=== PATIENT | female | born 1940 | race Asian ===

== ENCOUNTER → 2016-09-11 | Outpatient (CLI) | payer MEDICARE, MEDICAID ==
[2016-09-11 14:03] LABS: ABSOLUTE BASOPHILS # (AUTO) 0.1 10^3/uL (0.0-0.2); ABSOLUTE EOSINOPHILS # (AUTO) 0.3 10^3/uL (0.0-0.6); ABSOLUTE LYMPHOCYTES (AUTO) 1.2 10^3/uL (0.5-4.7); ABSOLUTE MONOCYTES (AUTO) 0.3 10^3/uL (0.1-1.4); ABSOLUTE NEUT (AUTO) 4.3 10^3/uL (1.7-8.2); BASOPHILS % (AUTO) 0.9 % (0-2); EOSINOPHILS % (AUTO) 4.5 % (0-6); HEMATOCRIT 26.5 % (36.0-47.0); HEMOGLOBIN 9.2 g/dL (12.0-15.5); HGB HCT DIFFERENCE 1.1; LYMPHOCYTES % (AUTO) 19.6 % (13-45); MEAN CORPUSCULAR HEMOGLOBIN 30.7 pg (27.0-33.4); MEAN CORPUSCULAR HGB CONC 34.6 g/dL (32.0-36.0); MEAN CORPUSCULAR VOLUME 89 fl (80-97); MONOCYTES % (AUTO) 5.6 % (3-13); RED BLOOD COUNT 2.99 10^6/uL (3.72-5.28); RED CELL DISTRIBUTION WIDTH 15.5 % (11.5-14.0); SEGMENTED NEUTROPHILS % (AUTO) 69.4 % (42-78); WHITE BLOOD COUNT 6.2 10^3/uL (4.0-10.5)
[2016-09-11 14:31] LABS: ANION GAP 10 (5-19); BLOOD UREA NITROGEN 51 mg/dL (7-20); CALCIUM 9.1 mg/dL (8.4-10.2); CARBON DIOXIDE 26 mmol/L (22-30); CHLORIDE 104 mmol/L (98-107); CREATININE RESULT 3.46 mg/dL (0.52-1.25); GLUCOSE 113 mg/dL (75-110); PHOSPHORUS 4.5 mg/dL (2.5-4.5); POTASSIUM 5.5 mmol/L (3.6-5.0); SODIUM 140.3 mmol/L (137-145)
== END ==
LOC: OD 12:31
PROVIDERS: ATTEND Internal Medicine Nephrology
DX: N18.5 Chronic kidney disease, stage 5 (principal); D63.1 Anemia in chronic kidney disease; E83.30 Disorder of phosphorus metabolism, unspecified
CPT/HCPCS: 36415; 80048; 84100; 85025

== ENCOUNTER → 2016-09-16 | Outpatient (CLI) | payer MEDICARE, MEDICAID ==
[2016-09-16 12:16] LABS: HEMATOCRIT 28.5 % (36.0-47.0); HEMOGLOBIN 9.7 g/dL (12.0-15.5); HGB HCT DIFFERENCE 0.6; MEAN CORPUSCULAR HEMOGLOBIN 30.5 pg (27.0-33.4); MEAN CORPUSCULAR HGB CONC 33.9 g/dL (32.0-36.0); MEAN CORPUSCULAR VOLUME 90 fl (80-97); RED BLOOD COUNT 3.17 10^6/uL (3.72-5.28); RED CELL DISTRIBUTION WIDTH 15.7 % (11.5-14.0); WHITE BLOOD COUNT 6.9 10^3/uL (4.0-10.5)
== END ==
LOC: OD 11:24
PROVIDERS: ATTEND Internal Medicine Nephrology
DX: E87.5 Hyperkalemia (principal); D63.1 Anemia in chronic kidney disease
CPT/HCPCS: 36415; 84132; 85027

== ENCOUNTER → 2016-11-07 | Outpatient (CLI) | payer MEDICARE, MEDICAID ==
[2016-11-07 09:00] LABS: ABSOLUTE EOSINOPHILS # (AUTO) 0.2 10^3/uL (0.0-0.6); ABSOLUTE LYMPHOCYTES (AUTO) 1.5 10^3/uL (0.5-4.7); ABSOLUTE MONOCYTES (AUTO) 0.4 10^3/uL (0.1-1.4); ABSOLUTE NEUT (AUTO) 3.9 10^3/uL (1.7-8.2); BASOPHILS % (AUTO) 0.6 % (0-2); EOSINOPHILS % (AUTO) 3.4 % (0-6); HEMATOCRIT 29.2 % (36.0-47.0); HEMOGLOBIN 10.1 g/dL (12.0-15.5); HGB HCT DIFFERENCE 1.1; LYMPHOCYTES % (AUTO) 24.6 % (13-45); MEAN CORPUSCULAR HEMOGLOBIN 30.7 pg (27.0-33.4); MEAN CORPUSCULAR HGB CONC 34.6 g/dL (32.0-36.0); MEAN CORPUSCULAR VOLUME 89 fl (80-97); MONOCYTES % (AUTO) 6.3 % (3-13); RED BLOOD COUNT 3.29 10^6/uL (3.72-5.28); RED CELL DISTRIBUTION WIDTH 15.3 % (11.5-14.0); SEGMENTED NEUTROPHILS % (AUTO) 65.1 % (42-78)
[2016-11-07 09:35] LABS: ANION GAP 11 (5-19); BLOOD UREA NITROGEN 48 mg/dL (7-20); CALCIUM 9.2 mg/dL (8.4-10.2); CARBON DIOXIDE 26 mmol/L (22-30); CHLORIDE 104 mmol/L (98-107); CREATININE RESULT 3.34 mg/dL (0.52-1.25); GLUCOSE 69 mg/dL (75-110); POTASSIUM 4.9 mmol/L (3.6-5.0); SODIUM 141.3 mmol/L (137-145)
== END ==
LOC: OD 08:03
PROVIDERS: ATTEND Internal Medicine Nephrology
DX: N18.5 Chronic kidney disease, stage 5 (principal); D63.1 Anemia in chronic kidney disease
CPT/HCPCS: 36415; 80048; 85025

== ENCOUNTER 2016-12-03 14:44 | Inpatient (IN) | payer MEDICARE, MEDICAID ==
--- NOTE | 2016-12-03 15:54 | ER Document Report ---
ED Medical Screen (RME) - General Stated Complaint: BACK PAIN Notes: Patient is here for evaluation of possible kidney failure. States she vomited this am. Took tylenol last night for chills. Febrile in triage. Patient is diabetic. Denies dysuria. Patient denies pain at this time I have greeted and performed a rapid initial assessment of this patient. A comprehensive ED assessment and evaluation of the patient, analysis of test results and completion of the medical decision making process will be conducted by additional ED providers. TRAVEL OUTSIDE OF THE [place] IN LAST 30 DAYS: No - Related Data Allergies/Adverse Reactions: No Known Allergies Allergy (Verified 12/03/16 15:51) Past Medical History - Past Medical History Cardiac Medical History: Reports: Hx Hypertension Denies: Hx Coronary Artery Disease, Hx Heart Attack Pulmonary Medical History: Reports: Hx Pneumonia Denies: Hx Asthma, Hx Bronchitis, Hx COPD Neurological Medical History: Denies: Hx Cerebrovascular Accident, Hx Seizures Endocrine Medical History: Reports: Hx Diabetes Mellitus Type 2 Renal/ Medical History: Reports: Hx End Stage Renal Disease, Hx Renal Insufficiency GI Medical History: Reports: Hx Ulcer Musculoskeltal Medical History: Denies Hx Arthritis Past Surgical History: Reports: Hx Tubal Ligation. Denies: Hx Hysterectomy - Immunizations Hx Diphtheria, Pertussis, Tetanus Vaccination: No Physical Exam - Vital signs Vitals: Temp Pulse Resp BP Pulse Ox 99.6 F 77 20 109/50 L 96 12/03/16 15:13 12/03/16 15:13 12/03/16 15:13 12/03/16 15:13 12/03/16 15:13 - Cardiovascular Rhythm: Regular Heart sounds: Normal auscultation Course - Vital Signs Vital signs: Temp Pulse Resp BP Pulse Ox 99.6 F 77 20 109/50 L 96 12/03/16 15:13 12/03/16 15:13 12/03/16 15:13 12/03/16 15:13 12/03/16 15:13
[2016-12-03] MEDS ORDERED: ACETAMINOPHEN 325 MG TABLET PO ONE (15:56)
[2016-12-03 16:20] LABS: ABSOLUTE LYMPHOCYTES (AUTO) 1.1 10^3/uL (0.5-4.7); ABSOLUTE MONOCYTES (AUTO) 1.6 10^3/uL (0.1-1.4); ABSOLUTE NEUT (AUTO) 11.5 10^3/uL (1.7-8.2); BASOPHILS % (AUTO) 0.3 % (0-2); EOSINOPHILS % (AUTO) 0.2 % (0-6); HEMATOCRIT 28.1 % (36.0-47.0); HEMOGLOBIN 9.6 g/dL (12.0-15.5); HGB HCT DIFFERENCE 0.7; LYMPHOCYTES % (AUTO) 7.6 % (13-45); MEAN CORPUSCULAR HEMOGLOBIN 30.5 pg (27.0-33.4); MEAN CORPUSCULAR HGB CONC 34.3 g/dL (32.0-36.0); MEAN CORPUSCULAR VOLUME 89 fl (80-97); MONOCYTES % (AUTO) 11.1 % (3-13); RED BLOOD COUNT 3.15 10^6/uL (3.72-5.28); RED CELL DISTRIBUTION WIDTH 14.9 % (11.5-14.0); SEGMENTED NEUTROPHILS % (AUTO) 80.8 % (42-78); WHITE BLOOD COUNT 14.2 10^3/uL (4.0-10.5)
[2016-12-03 16:28] LABS: APPEARANCE,URINE CLOUDY; BILIRUBIN,URINE NEGATIVE (NEGATIVE); GLUCOSE, URINE NEGATIVE (NEGATIVE); KETONES,URINE NEGATIVE (NEGATIVE); LEUKOCYTE ESTERASE,URINE LARGE (NEGATIVE); NITRITE,URINE POSITIVE (NEGATIVE); PROTEIN,URINE 100 mg/dL (NEGATIVE); UROBILINOGEN,URINE NEGATIVE mg/dL (<2.0)
[2016-12-03 16:38] LABS: ALANINE AMINOTRANSFERASE 30 U/L (9-52); ALBUMIN 4.4 g/dL (3.5-5.0); ALKALINE PHOSPHATASE 67 U/L (38-126); ANION GAP 14 (5-19); ASPARTATE AMINO TRANSFERASE 17 U/L (14-36); BILIRUBIN,DIRECT 0.2 mg/dL (0.0-0.4); BLOOD UREA NITROGEN 66 mg/dL (7-20); CALCIUM 9.6 mg/dL (8.4-10.2); CARBON DIOXIDE 27 mmol/L (22-30); CHLORIDE 98 mmol/L (98-107); CREATININE RESULT 3.88 mg/dL (0.52-1.25); GLUCOSE 100 mg/dL (75-110); LIPASE 67.4 U/L (23-300); POTASSIUM 5.3 mmol/L (3.6-5.0); SODIUM 138.9 mmol/L (137-145); TOTAL PROTEIN 7.6 g/dL (6.3-8.2)
[2016-12-03] MEDS ORDERED: CEFTRIAXONE INJ 1000 MG VIAL IV ONE (21:01)
[2016-12-03] MEDS ORDERED: NORMAL SALINE 1000 ML 1,000 ML IV PRN (21:01)
--- NOTE | 2016-12-03 21:06 | ER Document Report ---
ED GI/ - General Chief Complaint: Vomiting Stated Complaint: BACK PAIN Time seen by provider: 21:05 Mode of Arrival: Ambulatory Information source: Patient TRAVEL OUTSIDE OF THE [place] IN LAST 30 DAYS: No - HPI Patient complains to provider of: Dysuria Onset: This morning Timing/Duration: Gradual Location: Suprapubic Exacerbated by: Denies Relieved by: Denies Notes: 12/04/16 02:59 This 75-year-old female presents to the emergency room complaining of "kidney failure", her son at bedside reports that she's been confused today, she lives alone and told one family member that she's been trying to contact multiple family members all day, however none of the other family members had any missed cause on their cell phones, when patient's son went to her house to check on her she did not know who he was which is not her baseline, he reports she has been somewhat lethargic throughout the day and not eating, she also reports she had an episode of vomiting this morning, he does report patient has a history of stage V chronic kidney disease, and that she was encouraged to have dialysis in the past but she has been resistant to it until now - Related Data Allergies/Adverse Reactions: No Known Allergies Allergy (Verified 12/03/16 15:51) Home Medications: Current Home Medications Carvedilol [Coreg] 1 tab PO BID 12/03/16 [History] Docusate Sodium [Colace 100 mg Capsule] 1 cap PO DAILY PRN 12/03/16 [History] Furosemide [Lasix] 40 mg PO DAILY 12/03/16 [History] Past Medical History - General Information source: Patient - Social History Smoking Status: Unknown if Ever Smoked Chew tobacco use (# tins/day): No Frequency of alcohol use: None Drug Abuse: None Family History: Reviewed & Not Pertinent Patient has suicidal ideation: No Patient has homicidal ideation: No - Past Medical History Cardiac Medical History: Reports: Hx Hypertension Denies: Hx Coronary Artery Disease, Hx Heart Attack Pulmonary Medical History: Reports: Hx Pneumonia Denies: Hx Asthma, Hx Bronchitis, Hx COPD Neurological Medical History: Denies: Hx Cerebrovascular Accident, Hx Seizures Endocrine Medical History: Reports: Hx Diabetes Mellitus Type 1, Hx Diabetes Mellitus Type 2 Renal/ Medical History: Reports: Hx End Stage Renal Disease - stage 5, Hx Renal Insufficiency. Denies: Hx Peritoneal Dialysis GI Medical History: Reports: Hx Ulcer Musculoskeltal Medical History: Denies Hx Arthritis Past Surgical History: Reports: Hx Tubal Ligation. Denies: Hx Hysterectomy - Immunizations Hx Diphtheria, Pertussis, Tetanus Vaccination: No Hx Pneumococcal Vaccination: 09/20/14 Review of Systems - Review of Systems Constitutional: Malaise EENT: No symptoms reported Cardiovascular: No symptoms reported Respiratory: No symptoms reported Gastrointestinal: No symptoms reported Genitourinary: Frequency Female Genitourinary: No symptoms reported Musculoskeletal: No symptoms reported Skin: No symptoms reported Hematologic/Lymphatic: No symptoms reported Neurological/Psychological: Confusion -: Yes All other systems reviewed and negative Physical Exam - Vital signs Vitals: Temp Pulse Resp BP Pulse Ox 99.6 F 77 20 109/50 L 96 12/03/16 15:13 12/03/16 15:13 12/03/16 15:13 12/03/16 15:13 12/03/16 15:13 Interpretation: Normal - General General appearance: Appears well, Alert - HEENT Head: Normocephalic, Atraumatic Eyes: Normal Pupils: PERRL - Respiratory Respiratory status: No respiratory distress Chest status: Nontender Breath sounds: Normal Chest palpation: Normal - Cardiovascular Rhythm: Regular Heart sounds: Normal auscultation Murmur: No - Abdominal Inspection: Normal Distension: No distension Bowel sounds: Normal Tenderness: Tender Organomegaly: No organomegaly - Back Back: Normal, Nontender - Extremities General upper extremity: Normal inspection, Nontender, Normal color, Normal ROM , Normal temperature General lower extremity: Normal inspection, Nontender, Normal color, Normal ROM , Normal temperature, Normal weight bearing. No: Kimberly's sign - Neurological Neuro grossly intact: Yes Cognition: Confused [place] Coma Scale Eye Opening: Spontaneous [place] Coma Scale Verbal: Confused [place] Coma Scale Motor: Obeys Commands [place] Coma Scale Total: 14 Speech: Normal Motor strength normal: LUE, RUE, LLE, RLE Sensory: Normal - Psychological Associated symptoms: Normal affect, Normal mood - Skin Skin Temperature: Warm Skin Moisture: Dry Skin Color: Normal Course - Re-evaluation Re-evalutation: 12/04/16 03:06 Patient was discussed with primary care provider who agrees to admit for further evaluation and treatment - Vital Signs Vital signs: Temp Pulse Resp BP Pulse Ox 98 F 66 18 110/50 L 100 12/04/16 01:24 12/04/16 01:24 12/04/16 01:24 12/04/16 01:24 12/04/16 01:24 - Laboratory Result Diagrams: 12/03/16 16:00 12/03/16 16:00 Laboratory results interpreted by me: 12/03/16 12/03/16 12/03/16 16:00 16:00 16:05 WBC 14.2 H RBC 3.15 L Hgb 9.6 L Hct 28.1 L RDW 14.9 H Plt Count 145 L Seg Neutrophils % 80.8 H Lymphocytes % 7.6 L Absolute Neutrophils 11.5 H Absolute Monocytes 1.6 H Potassium 5.3 H BUN 66 H Creatinine 3.88 H Est GFR ( Amer) 14 L Est GFR (Non-Af Amer) 11 L Urine Protein 100 H Urine Blood MODERATE H Urine Nitrite POSITIVE H Ur Leukocyte Esterase LARGE H Discharge - Discharge Clinical Impression: Acute encephalopathy, Acute kidney injury superimposed on chronic kidney disease Urinary tract infection Qualifiers: Urinary tract infection type: site unspecified Hematuria presence: without hematuria Qualified Code(s): N39.0 - Urinary tract infection, site not specified Leukocytosis Qualifiers: Leukocytosis type: unspecified Qualified Code(s): D72.829 - Elevated white blood cell count, unspecified Condition: Fair Disposition: ADMITTED INPATIENT Admitting Provider: Ruben Unit Admitted: Telemetry
[2016-12-04] MEDS ORDERED: DEXTROSE 40% GEL 15 GM TUBE X 2 PO PRN (01:58)
[2016-12-04] MEDS ORDERED: INSULIN LISPRO 100 UNIT/ML 3 ML VIAL SUBCUT PRN (01:58)
[2016-12-04] MEDS ORDERED: DEXTROSE 40% GEL 15 GM TUBE PO PRN (01:58)
[2016-12-04] MEDS ORDERED: GLUCAGON,HUMAN RECOMB 1 MG INJ IM PRN (01:58)
[2016-12-04] MEDS ORDERED: DEXTROSE 50%-WATER SYRINGE 12.5 GM/25 ML DOSE IV PRN (01:58)
[2016-12-04] MEDS ORDERED: DEXTROSE 50%-WATER SYRINGE 25 GM/50 ML DOSE IV PRN (01:58)
[2016-12-04] MEDS ORDERED: ONDANSETRON HCL INJ/PF 4 MG/2 ML SDV IV PRN (04:55)
[2016-12-04] MEDS: NORMAL SALINE 1000 ML 1,000 ML IV PRN (05:42)
[2016-12-04] MEDS: ACETAMINOPHEN 325 MG TABLET PO PRN (05:42)
[2016-12-04 05:54] LABS: HEMATOCRIT 20.6 % (36.0-47.0); MEAN CORPUSCULAR HEMOGLOBIN 30.8 pg (27.0-33.4); MEAN CORPUSCULAR HGB CONC 34.8 g/dL (32.0-36.0); MEAN CORPUSCULAR VOLUME 89 fl (80-97); RED BLOOD COUNT 2.33 10^6/uL (3.72-5.28); RED CELL DISTRIBUTION WIDTH 15.3 % (11.5-14.0); WHITE BLOOD COUNT 15.4 10^3/uL (4.0-10.5)
[2016-12-04 06:04] LABS: ANION GAP 12 (5-19); BLOOD UREA NITROGEN 70 mg/dL (7-20); CALCIUM 8.5 mg/dL (8.4-10.2); CARBON DIOXIDE 24 mmol/L (22-30); CHLORIDE 101 mmol/L (98-107); CREATININE RESULT 4.09 mg/dL (0.52-1.25); GLUCOSE 110 mg/dL (75-110); POTASSIUM 5.2 mmol/L (3.6-5.0)
[2016-12-04 06:21] LABS: BAND NEUTROPHILS % (MANUAL) 6 % (3-5); BASOPHILS % (MANUAL) 2 % (0-2); EOSINOPHILS % (MANUAL) 0 % (0-6); LYMPHOCYTES % (MANUAL) 7 % (13-45); TOTAL CELLS COUNTED 100
[2016-12-04 06:22] LABS: ANISOCYTOSIS 1+; HYPOCHROMASIA SLIGHT; STOMATOCYTES SLIGHT
[2016-12-04 06:23] LABS: POIKILOCYTOSIS SLIGHT
[2016-12-04 06:25] LABS: HEMOGLOBIN 7.2 g/dL (12.0-15.5)
[2016-12-04] MEDS ORDERED: NORMAL SALINE 250 ML IV PRN ×2 (08:30)
[2016-12-04] MEDS ORDERED: FUROSEMIDE INJ/PF 20 MG/2 ML SDV IV PRN (08:30)
[2016-12-04] MEDS ORDERED: (PENDING PHARMACY ID) (Terazosin Hcl [Terazosin Hcl] 1 MG) PO SCH (10:00)
[2016-12-04] MEDS ORDERED: CALCITRIOL 0.25 MCG CAPSULE PO SCH (10:00)
[2016-12-04] MEDS ORDERED: FERROUS SULFATE 325 MG TABLET PO SCH (10:00)
[2016-12-04] MEDS: CEFTRIAXONE 1 GM/D5W RTU 1 GM/50 ML RTUPB IV SCH (10:36)
[2016-12-04] MEDS ORDERED: LEVOFLOXACIN 500 MG/D5W RTU 500 MG/100 ML RTUPB IV ONE (11:00)
[2016-12-04] MEDS ORDERED: NIFEDIPINE 30 MG TAB.ER.24 PO ONE (11:00)
[2016-12-04] MEDS ORDERED: CARVEDILOL 6.25 MG TABLET PO ONE (11:30)
[2016-12-04] MEDS ORDERED: DOXAZOSIN MESYLATE 1 MG TABLET PO ONE (11:30)
--- NOTE | 2016-12-04 18:37 | PDOC H&P ---
History of Present Illness Admission Date/PCP: 12/04/16 02:22 SHAINA PATT Patient complains of: Vomiting, Back pain, Dysuria, Worsening confusion History of Present Illness: RAFIA READ is a 75 year old female known to my practice who was brought to the ED with above complaints. Family reported that patient has become more lethargic and confused with disorientation to people and place. Son reported poor appetite and food intake for couple of days. Patient reported episode of nausea and vomiting prior to arrival in the ED. Patient denied abdominal pain. No chest pain or difficulty with breathing. Patient's comorbidities include HTN , ESRD, DM type 2, and Osteoarthritis. Her initial evaluation in the ED did suggest possible sepsis with abnormal urinalysis, leukocytosis, and ESRD with hyperkalemia. Past Medical History Cardiac Medical History: Reports: Hypertension Denies: Coronary Artery Disease, Myocardial Infarction Pulmonary Medical History: Reports: Pneumonia Denies: Asthma, Bronchitis, Chronic Obstructive Pulmonary Disease (COPD) Neurological Medical History: Denies: Seizures Endocrine Medical History: Reports: Diabetes Mellitus Type 1, Diabetes Mellitus Type 2 Renal/ Medical History: Reports: End Stage Renal Disease - stage 5 Musculoskeltal Medical History: Denies: Arthritis Hematology: Reports: Anemia Past Surgical History Past Surgical History: Reports: Tubal Ligation Denies: Hysterectomy Social History Smoking Status: Unknown if Ever Smoked Frequency of Alcohol Use: None Hx Recreational Drug Use: No Hx Prescription Drug Abuse: No - Advance Directive Resuscitation Status: Full Code Family History Family History: Reviewed & Not Pertinent Parental Family History Reviewed: Yes Children Family History Reviewed: Yes Sibling(s) Family History Reviewed.: Yes Medication/Allergy Home Medications: Insulin Glargine,Hum.rec.anlog [Lantus Insulin 100 Unit/mL] 14 unit SUBCUT [facility] # 5 06/22/13 Calcitriol 1 cap PO DAILY 01/04/15 Ferrous Sulfate [Iron] 325 mg PO DAILY 01/04/15 Nifedipine [Procardia XL 30 mg Tablet] 90 mg PO QAM 01/04/15 Nifedipine [Procardia Xl 30 mg Tablet] 30 mg PO QPM 01/04/15 Terazosin HCl 1 mg PO DAILY 01/04/15 Carvedilol [Coreg] 1 tab PO BID 12/03/16 Docusate Sodium [Colace 100 mg Capsule] 1 cap PO DAILY PRN 12/03/16 Furosemide [Lasix] 40 mg PO DAILY 12/03/16 Allergies/Adverse Reactions: No Known Allergies Allergy (Verified 12/03/16 15:51) Review of Systems Constitutional: PRESENT: weakness Nose, Mouth, and Throat: ABSENT: as per HPI, headache(s), mouth pain, sore throat, vertigo, other Cardiovascular: ABSENT: chest pain, dyspnea on exertion, edema, orthropnea, palpitations Respiratory: ABSENT: cough, hemoptysis Gastrointestinal: PRESENT: nausea, vomiting. ABSENT: as per HPI, abdominal pain , bloating, coffee ground emesis, constipation, diarrhea, dysphagia, heartburn, hematemesis, hematochezia, melena, other Genitourinary: ABSENT: dysuria, hematuria Musculoskeletal: ABSENT: joint swelling Neurological: PRESENT: confusion Psychiatric: ABSENT: anxiety, depression, homidical ideation, suicidal ideation Endocrine: ABSENT: cold intolerance, heat intolerance, menstrual abnormalities, polydipsia, polyuria Hematologic/Lymphatic: ABSENT: as per HPI, easy bleeding, easy bruising, lymphadenopathy, other Allergic/Immunologic: ABSENT: as per HPI, seasonal rhinorrhea, other Physical Exam Vital Signs: Temp Pulse Resp BP Pulse Ox 99.3 F 70 20 119/45 L 96 12/04/16 07:35 12/04/16 07:35 12/04/16 07:35 12/04/16 07:35 12/04/16 07:35 Intake & Output 12/03/16 12/04/16 12/05/16 06:59 06:59 06:59 Intake Total 1650 Balance 1650 General appearance: PRESENT: no acute distress, cooperative Head exam: PRESENT: atraumatic, normocephalic Eye exam: PRESENT: conjunctiva pink, EOMI, PERRLA. ABSENT: scleral icterus Ear exam: PRESENT: normal external ear exam Mouth exam: PRESENT: moist, tongue midline Throat exam: ABSENT: post pharyngeal erythema, tonsillar erythema, tonsillar exudate, tonsillogmegaly, other Neck exam: PRESENT: full ROM. ABSENT: carotid bruit, JVD, lymphadenopathy, thyromegaly Respiratory exam: PRESENT: clear to auscultation sue Cardiovascular exam: PRESENT: RRR. ABSENT: diastolic murmur, rubs, systolic murmur Pulses: PRESENT: normal dorsalis pedis pul, +2 pedal pulses bilateral Vascular exam: PRESENT: pallor GI/Abdominal exam: PRESENT: normal bowel sounds, soft. ABSENT: distended, guarding, mass, organolmegaly, rebound, tenderness Gentrourinary exam: ABSENT: ecchymosis, erythema, lacerations, lesions, scrotal swelling, testicular tenderness, urethral discharge, indwelling catheter, other Musculoskeletal exam: PRESENT: deformity - related to joint involvement with arthritis Neurological exam: PRESENT: alert, awake, oriented to person, oriented to place , oriented to time, oriented to situation, CN II-XII grossly intact, motor sensory deficit Psychiatric exam: PRESENT: appropriate affect, normal mood. ABSENT: homicidal ideation, suicidal ideation Skin exam: PRESENT: dry, intact, warm. ABSENT: cyanosis, rash Results Laboratory Results: 12/04/16 05:18 12/04/16 05:18 12/04/16 12/04/16 05:18 05:18 WBC 15.4 H RBC 2.33 L Hgb 7.2 L D Hct 20.6 L MCV 89 MCH 30.8 MCHC 34.8 RDW 15.3 H Plt Count 133 L Seg Neutrophils % Not Reportable Lymphocytes % Not Reportable Monocytes % Not Reportable Eosinophils % Not Reportable Basophils % Not Reportable Absolute Neutrophils Not Reportable Absolute Lymphocytes Not Reportable Absolute Monocytes Not Reportable Absolute Eosinophils Not Reportable Absolute Basophils Not Reportable Sodium 137.0 Potassium 5.2 H Chloride 101 Carbon Dioxide 24 Anion Gap 12 BUN 70 H Creatinine 4.09 H Est GFR ( Amer) 13 L Est GFR (Non-Af Amer) 11 L Glucose 110 Calcium 8.5 Assessment & Plan - Diagnosis (3) Urinary tract infection Qualifiers: Urinary tract infection type: site unspecified Hematuria presence: without hematuria Qualified Code(s): N39.0 - Urinary tract infection, site not specified Is this a current diagnosis for this admission?: YesPlan: See admitting physician orders (4) DM (diabetes mellitus), type 2 with renal complications Qualifiers: Diabetes mellitus senior living insulin use: with terminal operator use Chronic kidney disease stage: stage 5, not on chronic dialysis Is this a current diagnosis for this admission?: YesPlan: See admitting physician orders (5) HTN (hypertension) Qualifiers: Hypertension type: essential hypertension Qualified Code(s): I10 - Essential (primary) hypertension Is this a current diagnosis for this admission?: YesPlan: See admitting physician orders (6) HLD (hyperlipidemia) Qualifiers: Hyperlipidemia type: pure hypercholesterolemia Qualified Code(s): E78.00 - Pure hypercholesterolemia, unspecified; E78.0 - Pure hypercholesterolemia Is this a current diagnosis for this admission?: YesPlan: See admitting physician orders (7) 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
--- NOTE | 2016-12-04 19:43 | PDOC CONSULTATION ---
Consultation Consult Date: 12/04/16 Attending physician:: SHAINA BELTRE Consult reason:: I was asked by Dr. Beltre to see the patient because of worsening chronic kidney disease with hyperkalemia. 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 Patient said that starting Friday, 2 days ago, she has not been feeling very good. Yesterday she said when she got up she has this urgency to urinate but when she goes to the bathroom she only produces minimal urine output. She denies any dysuria but she feels tight on her bladder. At around 10 AM she started having nausea and vomiting so she tried to call her son but because she was confused she called her granddaughter in [place] instead. So the granddaughter called her father who is one of her sons here in [place]. The son went to the patient's house and brought her to the emergency room. Patient has a temperature of 102.1 last night. She admits feeling sleepy, lethargic and tired. She continues to have no appetite. She otherwise denies any shortness of breath nor chest pains nor diarrhea. She has some dry cough. Initial workup showed evidence of urinary tract infections so patient was started on IV antibiotics. Upon presentation patient has a BUN of 66 and a creatinine of 3.8 today they are 70 and 4.09 despite IV fluids. She also has elevated potassium of 5.3 currently 5.2. She was given a liter of IV fluids in the emergency room and currently at 50 mL an hour of normal saline. Her hemoglobin dropped from 9.6- 7.2 today. Patient is currently being given blood transfusion for 2 units. When I last saw the patient in my office on November 14 with her son I have discussed about possibility of initiating hemodialysis very very soon with her and son. At that time aside from just feeling fatigue and decreased appetite she felt like she is still doing okay and was very hesitant to do anything including preparation for vascular access. She also could not decide if she would want to do dialysis or not. She told me that she had a discussion with her son after the left my office. Today when I told her that her kidney function continues to get worse and she would need to be initiated and renal replacement therapy, she readily agreed to be started on dialysis. Past Medical History Cardiac Medical History: Reports: Hyperlipidemia, Hypertension-primary Pulmonary Medical History: Reports: Pneumonia EENT Medical History: Reports: Cataracts Endocrine Medical History: Reports: Diabetes Mellitus Type 2 Complications of Diabetes: Reports: Autonomic Neuropathy, Nephropathy, Retinopathy Renal/ Medical History: Reports: Chronic Kidney Disease Stage V, Hyperkalemia , Hyperphosphatemia, Proteinuria, Secondary Hyperparathyroidism GI Medical History: Reports: Gastroesophageal Reflux Disease, Peptic Ulcer Disease, Other - Diverticulosis, colon polyps, hemorrhoids Musculoskeltal Medical History: Reports: Arthritis Hematology Medical History: Reports Anemia of Chronic Kidney Disease, Reports Iron Deficiency Anemia Past Surgical History Past Surgical History: Reports: Tubal Ligation, Other - Bilateral blepharoplasty upper eyelid leads, ureteral stent placement Past Surgical Note: Cataract extraction, laser eye surgery both eyes several times. Social History Information Source: Patient Lives with: Alone Smoking Status: Former Smoker Frequency of Alcohol Use: None Hx Recreational Drug Use: No Hx Prescription Drug Abuse: No - Advance Directive Resuscitation Status: Full Code Family History Family History: DM - Sr., Hypertension - Sr., Malignancy - Throat for both her parents Parental Family History Reviewed: Yes Children Family History Reviewed: Unknown Sibling(s) Family History Reviewed.: Yes Medication/Allergy Home Medications: Insulin Glargine,Hum.rec.anlog [Lantus Insulin 100 Unit/mL] 14 unit SUBCUT QHS # 5 06/22/13 Calcitriol 1 cap PO DAILY 01/04/15 Ferrous Sulfate [Iron] 325 mg PO DAILY 01/04/15 Nifedipine [Procardia XL 30 mg Tablet] 90 mg PO QAM 01/04/15 Nifedipine [Procardia Xl 30 mg Tablet] 30 mg PO QPM 01/04/15 Terazosin HCl 1 mg PO DAILY 01/04/15 Carvedilol [Coreg] 1 tab PO BID 12/03/16 Docusate Sodium [Colace 100 mg Capsule] 1 cap PO DAILY PRN 12/03/16 Furosemide [Lasix] 40 mg PO DAILY 12/03/16 Allergies/Adverse Reactions: No Known Allergies Allergy (Verified 12/03/16 15:51) Review of Systems All systems: reviewed and no additional remarkable complaints except as stated Review of Systems: Constitutional: ABSENT: chills, fatigue, headache(s), weight gain, weight loss; admits fever, fatigue, and weakness Eyes: ABSENT: visual disturbances Ears: ABSENT: hearing changes Cardiovascular: ABSENT: chest pain, dyspnea on exertion, edema, orthropnea, palpitations Respiratory: ABSENT: dyspnea, hemoptysis; admits cough Gastrointestinal: ABSENT: abdominal pain, constipation, diarrhea, hematemesis, hematochezia; admits nausea, admits vomiting Genitourinary: ABSENT: dysuria, hematuria; admits urgency Musculoskeletal: ABSENT: joint swelling Integumentary: ABSENT: rash, wounds Neurological: ABSENT: abnormal gait, abnormal speech, dizziness, focal weakness , numbness, syncope; admits initial confusion Psychiatric: ABSENT: anxiety, depression Endocrine: ABSENT: cold intolerance, heat intolerance, polydipsia, polyuria Hematologic/Lymphatic: ABSENT: easy bleeding, easy bruising, lymphadenopathy Physical Exam Vital Signs: Temp Pulse Resp BP Pulse Ox 99.5 F 79 17 155/57 H 98 12/04/16 18:12 12/04/16 18:12 12/04/16 18:12 12/04/16 18:12 12/04/16 18:12 Intake & Output 12/03/16 12/04/16 12/05/16 06:59 06:59 06:59 Intake Total 1650 1460 Balance 1650 1460 Exam: General appearance: no acute distress, cooperative, well-developed, well- nourished Head exam: PRESENT: atraumatic, normocephalic Eye exam: PRESENT: Conjunctiva pale, EOMI, PERRLA. ABSENT: conjunctival injection, scleral icterus Mouth exam: PRESENT: moist, neck supple, tongue midline Neck exam: PRESENT: full ROM. ABSENT: carotid bruit, JVD, lymphadenopathy, thyromegaly Respiratory exam: PRESENT: Slightly harsh to auscultation bilaterally. Positive rhonchi ABSENT: rales, stridor, wheezes Cardiovascular exam: PRESENT: RRR, +S1, +S2. Grade 2/6 systolic murmur Pulses: PRESENT: normal radial pulses, normal dorsalis pedis pulses GI/Abdominal exam: PRESENT: normal bowel sounds, soft. ABSENT: guarding, mass, tenderness Rectal exam: deferred Extremities exam: PRESENT: full ROM. ABSENT: calf tenderness, pedal edema Musculoskeletal: PRESENT: full ROM. ABSENT: deformity Neurological exam: PRESENT: alert, Awake, Oriented to person, Oriented to place , Oriented to time, reflexes normal, CN II-XII grossly intact. ABSENT: motor sensory deficit Psychiatric exam: PRESENT: appropriate affect, normal mood. ABSENT: homicidal ideation, suicidal ideation Skin exam: PRESENT: intact, dry, warm. ABSENT: rash Results Laboratory Results: 12/04/16 05:18 12/04/16 05:18 12/04/16 12/04/16 12/04/16 05:18 05:18 09:41 WBC 15.4 H RBC 2.33 L Hgb 7.2 L D Hct 20.6 L MCV 89 MCH 30.8 MCHC 34.8 RDW 15.3 H Plt Count 133 L Seg Neutrophils % Not Reportable Lymphocytes % Not Reportable Monocytes % Not Reportable Eosinophils % Not Reportable Basophils % Not Reportable Absolute Neutrophils Not Reportable Absolute Lymphocytes Not Reportable Absolute Monocytes Not Reportable Absolute Eosinophils Not Reportable Absolute Basophils Not Reportable Sodium 137.0 Potassium 5.2 H Chloride 101 Carbon Dioxide 24 Anion Gap 12 BUN 70 H Creatinine 4.09 H Est GFR ( Amer) 13 L Est GFR (Non-Af Amer) 11 L Glucose 110 Calcium 8.5 Blood Type A POSITIVE Antibody Screen NEGATIVE Assessment & Plan - Diagnosis (1) Chronic kidney disease, stage V requiring chronic dialysis Is this a current diagnosis for this admission?: YesPlan: This is due to diabetic nephropathy with known nonnephrotic range proteinuria without any hematuria and no evidence of paraproteinemia. Patient's kidney function has been progressively deteriorating for the last 6 months and has now reach end-stage renal disease due to beginning uremic symptoms. She does not have any fluid overload at this time. I spoke to the patient again the need for initiation of renal replacement therapy at this time. We had an extensive discussion with her son in my office about 3 weeks ago about dialysis and she is very knowledgeable about it. She agreed to proceed with initiation of renal replacement therapy in the form of hemodialysis. I informed her that for the need of vascular access is an appointment for PermCath and she agreed to have it. I'm going to consult vascular surgeon Dr. Chau Walton to put PermCath tomorrow and to initiate her first hemodialysis treatment on Friday. We'll also consult the landscape architect and planner to arrange an outpatient hemodialysis once the patient has been discharge from the hospital. We will place a PPD skin test and requests for hepatitis B and hepatitis C panels as part of the requirement so that she can be accepted as a patient in outpatient dialysis unit at [facility]. (2) Diabetic nephropathy Qualifiers: Diabetes mellitus type: type 2 Qualified Code(s): E11.21 - Type 2 diabetes mellitus with diabetic nephropathy Is this a current diagnosis for this admission?: YesPlan: She has underlying nonnephrotic range proteinuria without evidence of paraproteinemia. (3) Urinary tract infection Qualifiers: Urinary tract infection type: site unspecified Hematuria presence: without hematuria Qualified Code(s): N39.0 - Urinary tract infection, site not specified Is this a current diagnosis for this admission?: YesPlan: Continue IV antibiotics per primary service. (4) Metabolic encephalopathy Is this a current diagnosis for this admission?: YesPlan: Likely secondary to a combination of her urinary tract infection and worsening kidney function indicating uremic symptoms. (5) Anemia in chronic kidney disease (CKD) Is this a current diagnosis for this admission?: YesPlan: She has been on Procrit treatment as an outpatient. Last dose was 3 weeks ago and she is supposed to have another shot this week. Patient is currently being transfused with packed RBC. We will continue Procrit during dialysis. We will also check her stool for occult blood. (6) Iron deficiency anemia Is this a current diagnosis for this admission?: YesPlan: Continue ferrous sulfate orally but will switch to IV iron once we start dialysis treatment. (7) Hyperkalemia Is this a current diagnosis for this admission?: YesPlan: Patient needs low potassium and renal diet. (8) DM (diabetes mellitus), type 2 with renal complications Qualifiers: Diabetes mellitus lobsterman insulin use: with lobsterman use Chronic kidney disease stage: stage 5, not on chronic dialysis Is this a current diagnosis for this admission?: Yes (9) HTN (hypertension) Qualifiers: Hypertension type: essential hypertension Qualified Code(s): I10 - Essential (primary) hypertension Is this a current diagnosis for this admission?: YesPlan: Fairly controlled. - Notes Notes: Thank you very much for allowing me to participate in the care of this patient. - Time Time Spent: Greater than 70 Minutes
[2016-12-04] MEDS ORDERED: TUBERCULIN,PURIF.PROT.DERIV. 5 TU/0.1 ML TEST 1 ML VIAL ID ONE (20:00)
[2016-12-04] MEDS: INSULIN GLARGINE,HUM.REC.ANLOG 300 UNIT/3 ML INSULN.PEN SUBCUT SCH (21:59)
[2016-12-04] MEDS ORDERED: NIFEDIPINE 30 MG TAB.ER.24 PO SCH (22:00)
[2016-12-04 23:41] LABS: ABSOLUTE EOSINOPHILS # (AUTO) 0.1 10^3/uL (0.0-0.6); ABSOLUTE MONOCYTES (AUTO) 0.9 10^3/uL (0.1-1.4); ABSOLUTE NEUT (AUTO) 10.8 10^3/uL (1.7-8.2); BASOPHILS % (AUTO) 0.2 % (0-2); EOSINOPHILS % (AUTO) 0.5 % (0-6); HEMATOCRIT 32.5 % (36.0-47.0); HGB HCT DIFFERENCE 1.1; LYMPHOCYTES % (AUTO) 7.5 % (13-45); MEAN CORPUSCULAR HEMOGLOBIN 30.5 pg (27.0-33.4); MEAN CORPUSCULAR HGB CONC 34.5 g/dL (32.0-36.0); MEAN CORPUSCULAR VOLUME 89 fl (80-97); MONOCYTES % (AUTO) 7.3 % (3-13); RED BLOOD COUNT 3.67 10^6/uL (3.72-5.28); RED CELL DISTRIBUTION WIDTH 14.8 % (11.5-14.0); SEGMENTED NEUTROPHILS % (AUTO) 84.5 % (42-78); WHITE BLOOD COUNT 12.8 10^3/uL (4.0-10.5)
[2016-12-05 00:04] LABS: HEMOGLOBIN 11.2 g/dL (12.0-15.5)
[2016-12-05] MEDS: NORMAL SALINE 1000 ML 1,000 ML IV PRN (05:42)
[2016-12-05 06:38] LABS: ABSOLUTE BASOPHILS # (AUTO) 0.1 10^3/uL (0.0-0.2); ABSOLUTE EOSINOPHILS # (AUTO) 0.1 10^3/uL (0.0-0.6); ABSOLUTE LYMPHOCYTES (AUTO) 0.9 10^3/uL (0.5-4.7); ABSOLUTE MONOCYTES (AUTO) 0.9 10^3/uL (0.1-1.4); ABSOLUTE NEUT (AUTO) 10.4 10^3/uL (1.7-8.2); BASOPHILS % (AUTO) 0.5 % (0-2); EOSINOPHILS % (AUTO) 0.6 % (0-6); HEMATOCRIT 32.1 % (36.0-47.0); HEMOGLOBIN 11.1 g/dL (12.0-15.5); HGB HCT DIFFERENCE 1.2; LYMPHOCYTES % (AUTO) 7.1 % (13-45); MEAN CORPUSCULAR HEMOGLOBIN 30.6 pg (27.0-33.4); MEAN CORPUSCULAR HGB CONC 34.6 g/dL (32.0-36.0); MEAN CORPUSCULAR VOLUME 88 fl (80-97); MONOCYTES % (AUTO) 7.6 % (3-13); RED BLOOD COUNT 3.63 10^6/uL (3.72-5.28); RED CELL DISTRIBUTION WIDTH 15.1 % (11.5-14.0); SEGMENTED NEUTROPHILS % (AUTO) 84.2 % (42-78); WHITE BLOOD COUNT 12.3 10^3/uL (4.0-10.5)
[2016-12-05 06:52] LABS: ALANINE AMINOTRANSFERASE 23 U/L (9-52); ALBUMIN 3.5 g/dL (3.5-5.0); ALKALINE PHOSPHATASE 52 U/L (38-126); ANION GAP 13 (5-19); ASPARTATE AMINO TRANSFERASE 21 U/L (14-36); BILIRUBIN,DIRECT 0.2 mg/dL (0.0-0.4); BILIRUBIN,TOTAL 0.8 mg/dL (0.2-1.3); BLOOD UREA NITROGEN 75 mg/dL (7-20); CALCIUM 8.2 mg/dL (8.4-10.2); CARBON DIOXIDE 22 mmol/L (22-30); CHLORIDE 107 mmol/L (98-107); GLUCOSE 66 mg/dL (75-110); MAGNESIUM 2.6 mg/dL (1.6-2.3); PHOSPHORUS 3.6 mg/dL (2.5-4.5); POTASSIUM 4.7 mmol/L (3.6-5.0); SODIUM 141.5 mmol/L (137-145); TOTAL PROTEIN 6.3 g/dL (6.3-8.2)
[2016-12-05] MEDS: CEFTRIAXONE 1 GM/D5W RTU 1 GM/50 ML RTUPB IV SCH (09:20)
[2016-12-05] MEDS: FERROUS SULFATE 325 MG TABLET PO SCH ×2 (09:22→18:14)
[2016-12-05] MEDS ORDERED: BACITRACIN INJ 50,000 UNIT VIAL IR PRN (09:55)
[2016-12-05] MEDS ORDERED: DOXAZOSIN MESYLATE 1 MG TABLET PO SCH (10:00)
[2016-12-05] MEDS ORDERED: NIFEDIPINE 30 MG TAB.ER.24 PO SCH (10:00)
[2016-12-05] MEDS ORDERED: MIDAZOLAM 2 MG/2 ML INJ ONE (11:23)
[2016-12-05] MEDS ORDERED: FENTANYL CITRATE INJ/PF 100 MCG/2 ML AMPUL ONE (11:23)
[2016-12-05] MEDS ORDERED: CEFAZOLIN INJ 1 GM VIAL ONE (11:23)
[2016-12-05] MEDS ORDERED: LIDOCAINE 0.5% INJ-PF (5 MG/ML) 50 ML SDV ONE (11:30)
--- NOTE | 2016-12-05 14:22 | Operative Report ---
Operative Report DATE OF SURGERY: 12/05/16 PREOPERATIVE DIAGNOSIS: #1 end-stage renal disease requiring hemodialysis. #2 multiple comorbidities. POSTOPERATIVE DIAGNOSIS: #1 end-stage renal disease requiring hemodialysis. #2 multiple comorbidities. OPERATION: #1 ultrasound evaluation of the right internal jugular vein. #2 real -time access in the right internal jugular vein with PermCath insertion. #3 angiogram and interpretation. SURGEON: STEVEN [employer]SHIP ADVISOR: none ANESTHESIA: Moderate Sedation TISSUE REMOVED OR ALTERED: Not applicable. COMPLICATIONS: None ESTIMATED BLOOD LOSS: 5 mL. INTRAOPERATIVE FINDINGS: Satisfactory right internal jugular vein support a PermCath, about 1.5 cm diameter. Satisfactory position with the tip of the catheter well down in the right atrium. Easy egress of blood and ingress of heparinized solution through both ports. PROCEDURE: After obtaining informed consent, the patient was taken to the [employer] General Superintendent and positioned supine. The right neck and chest were prepared with chlorhexidine and draped out with sterile linen. After the " universal timeout", in which it was verified that the patient continued to receive antibiotic, the procedure commenced. A steriley sheathed ultrasound probe was used to evaluate the right internal jugular vein. Local anesthesia was infiltrated adjacent to the probe. Access into the right internal jugular vein was obtained using a micropuncture needle, followed by micropuncture wire and then a micropuncture catheter. This was followed by introduction of a 0.035 guidewire the tip of which was placed down into the inferior vena cava . A 23 cm long split catheter was now positioned over the chest and an exit site marked and locally anesthetized ,the catheter was placed between the 2 incisions. Proximally, the catheter was now positioned using a peel-away sheath, after dilation. Easy ingress of heparinized solution and egress of blood obtained through both ports. A completion angiogram was done by injecting contrast. The findings were as dictated. The neck incision was now closed using interrupted 3-0 PDS to the subcutaneous tissues, the catheter was anchored at the exit site using 3- 0 PDS. A Biopatch device was now placed adjacent to the catheter. Dressings were applied and the procedure concluded. Exposure time: 0.2 minutes. Exposure: 9 cGy per centimeters squared. Contrast amount: 5 mL of [id number] low osmolality. Copies of the dictated operative report for Dr. Steven Walton MD.concluded. Copies of the dictated operative report for Dr. Steven Walton MD.
--- NOTE | 2016-12-05 17:39 | PDOC PROGRESS REPORT ---
Subjective Progress Note for:: 12/05/16 Subjective:: Patient was seen in consultation by Dr. Sherwood, oil and gas specialist, and Dr Yrn Walton, vascular surgeon, since last clinical assessment since her agreement to hemodialysis renal supplementation therapy. She had temporary dialysis catheter placed today with intent to have her initial session tomorrow. Urine culture did grew significant gram negative rods colonies. No fever or chills. No nausea, vomiting, or abdominal pain. No chest pain or difficulty with breathing. Remain on IV Rocephin and Levofloxacin therapy pending organism identification and sensitivity reports. Physical Exam Vital Signs: Temp Pulse Resp BP Pulse Ox 97.7 F 65 16 122/52 L 99 12/05/16 15:00 12/05/16 15:00 12/05/16 15:00 12/05/16 15:00 12/05/16 15:00 Intake & Output 12/04/16 12/05/16 12/06/16 06:59 06:59 06:59 Intake Total 1650 2650 Balance 1650 2650 General appearance: PRESENT: no acute distress, cooperative Head exam: PRESENT: atraumatic, normocephalic Eye exam: PRESENT: conjunctiva pink, EOMI, PERRLA. ABSENT: scleral icterus Mouth exam: PRESENT: moist Neck exam: PRESENT: full ROM. ABSENT: carotid bruit, JVD, lymphadenopathy, thyromegaly Respiratory exam: PRESENT: clear to auscultation sue Cardiovascular exam: PRESENT: RRR. ABSENT: diastolic murmur, rubs, systolic murmur Vascular exam: PRESENT: normal capillary refill, other - Temporary dialysis catheter over right anterior chest wall GI/Abdominal exam: PRESENT: normal bowel sounds, soft. ABSENT: distended, guarding, mass, organolmegaly, rebound, tenderness Extremities exam: PRESENT: full ROM Musculoskeletal exam: PRESENT: ambulatory, deformity - related to joint involvement with arthritis Neurological exam: PRESENT: alert, awake, oriented to person, oriented to place , oriented to time, oriented to situation, CN II-XII grossly intact. ABSENT: motor sensory deficit Psychiatric exam: PRESENT: appropriate affect, normal mood. ABSENT: homicidal ideation, suicidal ideation Skin exam: PRESENT: dry, intact - with satisfactory dressing over temporary catheter site., warm. ABSENT: cyanosis, rash Results Laboratory Results: 12/05/16 06:06 12/05/16 06:06 12/04/16 12/04/16 12/05/16 09:41 23:17 06:06 WBC 12.8 H 12.3 H RBC 3.67 L 3.63 L Hgb 11.2 L D 11.1 L Hct 32.5 L 32.1 L MCV 89 88 MCH 30.5 30.6 MCHC 34.5 34.6 RDW 14.8 H 15.1 H Plt Count 113 L 123 L Seg Neutrophils % 84.5 H 84.2 H Lymphocytes % 7.5 L 7.1 L Monocytes % 7.3 7.6 Eosinophils % 0.5 0.6 Basophils % 0.2 0.5 Absolute Neutrophils 10.8 H 10.4 H Absolute Lymphocytes 1.0 0.9 Absolute Monocytes 0.9 0.9 Absolute Eosinophils 0.1 0.1 Absolute Basophils 0.0 0.1 Sodium Potassium Chloride Carbon Dioxide Anion Gap BUN Creatinine Est GFR ( Amer) Est GFR (Non-Af Amer) Glucose Calcium Phosphorus Magnesium Total Bilirubin AST ALT Alkaline Phosphatase Total Protein Albumin Blood Type A POSITIVE Antibody Screen NEGATIVE 12/05/16 06:06 WBC RBC Hgb Hct MCV MCH MCHC RDW Plt Count Seg Neutrophils % Lymphocytes % Monocytes % Eosinophils % Basophils % Absolute Neutrophils Absolute Lymphocytes Absolute Monocytes Absolute Eosinophils Absolute Basophils Sodium 141.5 Potassium 4.7 Chloride 107 Carbon Dioxide 22 Anion Gap 13 BUN 75 H Creatinine 3.90 H Est GFR ( Amer) 14 L Est GFR (Non-Af Amer) 11 L Glucose 66 L Calcium 8.2 L Phosphorus 3.6 Magnesium 2.6 H Total Bilirubin 0.8 AST 21 ALT 23 Alkaline Phosphatase 52 Total Protein 6.3 Albumin 3.5 Blood Type Antibody Screen Impressions: Central Venous Line 12/05/16 00:00 IMPRESSION: IMAGE(S) OBTAINED DURING PROCEDURE. Guidance Fluoroscopy 12/05/16 00:00 IMPRESSION: IMAGE(S) OBTAINED DURING PROCEDURE. Guidance Ultrasound 12/05/16 00:00 IMPRESSION: IMAGE(S) OBTAINED DURING PROCEDURE. Assessment & Plan - Diagnosis (1) Toxic encephalopathy Is this a current diagnosis for this admission?: YesPlan: Improving. See attending physician orders. (2) Acute kidney injury superimposed on chronic kidney disease Is this a current diagnosis for this admission?: YesPlan: She is schedule to start on hemodialysis therapy tomorrow under directive of Dr. Sherwood, [place]. See attending physician orders. (3) Urinary tract infection Qualifiers: Urinary tract infection type: site unspecified Hematuria presence: without hematuria Qualified Code(s): N39.0 - Urinary tract infection, site not specified Is this a current diagnosis for this admission?: YesPlan: See attending physician orders. Follow up on urine culture findings. Maintain on current antibiotic coverage. (4) DM (diabetes mellitus), type 2 with renal complications Qualifiers: Diabetes mellitus long-term insulin use: with long-term use Chronic kidney disease stage: stage 5, not on chronic dialysis Is this a current diagnosis for this admission?: YesPlan: See attending physician orders. (5) HTN (hypertension) Qualifiers: Hypertension type: essential hypertension Qualified Code(s): I10 - Essential (primary) hypertension Is this a current diagnosis for this admission?: YesPlan: See attending physician orders. (6) HLD (hyperlipidemia) Qualifiers: Hyperlipidemia type: pure hypercholesterolemia Qualified Code(s): E78.00 - Pure hypercholesterolemia, unspecified; E78.0 - Pure hypercholesterolemia Is this a current diagnosis for this admission?: YesPlan: See attending physician orders. (7) 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 Is this a current diagnosis for this admission?: YesPlan: See attending physician orders. - Time Time Spent with patient: 25-34 minutes Medications reviewed and adjusted accordingly: Yes Anticipated discharge: Home with Homehealth Within: Other - Inpatient Certification Based on my medical assessment, after consideration of the patient's comorbidities, presenting symptoms, or acuity I expect that the services needed warrant INPATIENT care.: Yes I certify that my determination is in accordance with my understanding of Medicare's requirements for reasonable and necessary INPATIENT services [42 CFR 412.3e].: Yes Medical Necessity: Need Close Monitoring Due to Risk of Patient Decompensation, Need For Continuous Telemetry Monitoring, Need for IV Antibiotics, Risk of Complication if Not Cared For in Hospital Post Hospital Care: D/C Field Operations Supervisor Documentation - Plan Summary Plan Summary: See attending physician orders.
--- NOTE | 2016-12-05 18:18 | PDOC PROGRESS REPORT ---
Subjective Progress Note for:: 12/05/16 Subjective:: Patient is doing fine today. She underwent PermCath placement by Dr. Walton and it was uneventful. Her son is at bedside when I saw her this afternoon. I answered her questions regarding dialysis and some other concerns. Patient will be dialyzed for the first time tomorrow. Physical Exam Vital Signs: Temp Pulse Resp BP Pulse Ox 97.7 F 65 16 122/52 L 99 12/05/16 15:00 12/05/16 15:00 12/05/16 15:00 12/05/16 15:00 12/05/16 15:00 Intake & Output 12/04/16 12/05/16 12/06/16 06:59 06:59 06:59 Intake Total 1650 2650 720 Balance 1650 2650 720 Exam: General appearance: PRESENT: no acute distress, cooperative, well-developed, well-nourished Head exam: PRESENT: atraumatic, normocephalic Eye exam: PRESENT: conjunctiva pink, PERRLA. ABSENT: scleral icterus Neck exam: ABSENT: JVD Respiratory exam: PRESENT: Normal breath sounds. ABSENT: crackles, rales, rhonchi, unlabored, wheezes Cardiovascular exam: PRESENT: Regular rate rhythm -+S1, +S2. Positive grade 2/ 6 systolic murmur GI/Abdominal exam: PRESENT: normal bowel sounds, soft. ABSENT: guarding, mass, tenderness Extremities exam: ABSENT: No edema Neurological exam: PRESENT: alert, awake, oriented to person, place and time. Skin exam: PRESENT: dry, warm, Results Laboratory Results: 12/05/16 06:06 12/05/16 06:06 12/04/16 12/04/16 12/05/16 09:41 23:17 06:06 WBC 12.8 H 12.3 H RBC 3.67 L 3.63 L Hgb 11.2 L D 11.1 L Hct 32.5 L 32.1 L MCV 89 88 MCH 30.5 30.6 MCHC 34.5 34.6 RDW 14.8 H 15.1 H Plt Count 113 L 123 L Seg Neutrophils % 84.5 H 84.2 H Lymphocytes % 7.5 L 7.1 L Monocytes % 7.3 7.6 Eosinophils % 0.5 0.6 Basophils % 0.2 0.5 Absolute Neutrophils 10.8 H 10.4 H Absolute Lymphocytes 1.0 0.9 Absolute Monocytes 0.9 0.9 Absolute Eosinophils 0.1 0.1 Absolute Basophils 0.0 0.1 Sodium Potassium Chloride Carbon Dioxide Anion Gap BUN Creatinine Est GFR ( Amer) Est GFR (Non-Af Amer) Glucose Calcium Phosphorus Magnesium Total Bilirubin AST ALT Alkaline Phosphatase Total Protein Albumin Blood Type A POSITIVE Antibody Screen NEGATIVE 12/05/16 06:06 WBC RBC Hgb Hct MCV MCH MCHC RDW Plt Count Seg Neutrophils % Lymphocytes % Monocytes % Eosinophils % Basophils % Absolute Neutrophils Absolute Lymphocytes Absolute Monocytes Absolute Eosinophils Absolute Basophils Sodium 141.5 Potassium 4.7 Chloride 107 Carbon Dioxide 22 Anion Gap 13 BUN 75 H Creatinine 3.90 H Est GFR ( Amer) 14 L Est GFR (Non-Af Amer) 11 L Glucose 66 L Calcium 8.2 L Phosphorus 3.6 Magnesium 2.6 H Total Bilirubin 0.8 AST 21 ALT 23 Alkaline Phosphatase 52 Total Protein 6.3 Albumin 3.5 Blood Type Antibody Screen Impressions: Central Venous Line 12/05/16 00:00 IMPRESSION: IMAGE(S) OBTAINED DURING PROCEDURE. Guidance Fluoroscopy 12/05/16 00:00 IMPRESSION: IMAGE(S) OBTAINED DURING PROCEDURE. Guidance Ultrasound 12/05/16 00:00 IMPRESSION: IMAGE(S) OBTAINED DURING PROCEDURE. Assessment & Plan - Diagnosis (1) Chronic kidney disease, stage V requiring chronic dialysis Is this a current diagnosis for this admission?: YesPlan: We will plan for her first dialysis treatment tomorrow. All questions answered. Patient and son agreed with the plan. (2) Diabetic nephropathy Qualifiers: Diabetes mellitus type: type 2 Qualified Code(s): E11.21 - Type 2 diabetes mellitus with diabetic nephropathy Is this a current diagnosis for this admission?: YesPlan: She has underlying nonnephrotic range proteinuria without evidence of paraproteinemia. (3) Urinary tract infection Qualifiers: Urinary tract infection type: site unspecified Hematuria presence: without hematuria Qualified Code(s): N39.0 - Urinary tract infection, site not specified Is this a current diagnosis for this admission?: YesPlan: Continue IV antibiotics per primary service. (4) Metabolic encephalopathy Is this a current diagnosis for this admission?: YesPlan: Likely secondary to a combination of her urinary tract infection and worsening kidney function indicating uremic symptoms. (5) Anemia in chronic kidney disease (CKD) Is this a current diagnosis for this admission?: YesPlan: She has been on Procrit treatment as an outpatient. Last dose was 3 weeks ago and she is supposed to have another shot this week. Patient is was transfused with packed RBC. We will continue Procrit during dialysis as needed. We will also check her stool for occult blood. (6) Iron deficiency anemia Is this a current diagnosis for this admission?: YesPlan: Continue ferrous sulfate orally but will switch to IV iron once we start dialysis treatment. (7) Hyperkalemia Is this a current diagnosis for this admission?: YesPlan: Patient needs low potassium and renal diet. (8) DM (diabetes mellitus), type 2 with renal complications Qualifiers: Diabetes mellitus skilled nursing insulin use: with bed bug exterminator use Chronic kidney disease stage: stage 5, not on chronic dialysis Is this a current diagnosis for this admission?: Yes (9) HTN (hypertension) Qualifiers: Hypertension type: essential hypertension Qualified Code(s): I10 - Essential (primary) hypertension Is this a current diagnosis for this admission?: YesPlan: Fairly controlled. - Time Time with patient: 15-25 minutes
[2016-12-05] MEDS: INSULIN GLARGINE,HUM.REC.ANLOG 300 UNIT/3 ML INSULN.PEN SUBCUT SCH (21:53)
[2016-12-06] MEDS ORDERED: HEPARIN SOD (PORCINE) 1,000 UNIT/ML 10 ML VIAL IV PRN (05:00)
[2016-12-06 05:57] LABS: ABSOLUTE EOSINOPHILS # (AUTO) 0.1 10^3/uL (0.0-0.6); ABSOLUTE LYMPHOCYTES (AUTO) 0.6 10^3/uL (0.5-4.7); ABSOLUTE MONOCYTES (AUTO) 0.7 10^3/uL (0.1-1.4); ABSOLUTE NEUT (AUTO) 8.5 10^3/uL (1.7-8.2); BASOPHILS % (AUTO) 0.3 % (0-2); EOSINOPHILS % (AUTO) 1.3 % (0-6); HEMATOCRIT 32.9 % (36.0-47.0); HEMOGLOBIN 11.5 g/dL (12.0-15.5); HGB HCT DIFFERENCE 1.6; LYMPHOCYTES % (AUTO) 6.2 % (13-45); MEAN CORPUSCULAR HEMOGLOBIN 30.8 pg (27.0-33.4); MEAN CORPUSCULAR HGB CONC 34.9 g/dL (32.0-36.0); MEAN CORPUSCULAR VOLUME 88 fl (80-97); MONOCYTES % (AUTO) 7.1 % (3-13); RED BLOOD COUNT 3.73 10^6/uL (3.72-5.28); SEGMENTED NEUTROPHILS % (AUTO) 85.1 % (42-78)
[2016-12-06 06:10] LABS: ANION GAP 12 (5-19); BLOOD UREA NITROGEN 72 mg/dL (7-20); CALCIUM 8.1 mg/dL (8.4-10.2); CARBON DIOXIDE 22 mmol/L (22-30); CHLORIDE 107 mmol/L (98-107); CREATININE RESULT 3.82 mg/dL (0.52-1.25); GLUCOSE 79 mg/dL (75-110); POTASSIUM 4.4 mmol/L (3.6-5.0); SODIUM 140.9 mmol/L (137-145)
[2016-12-06] MEDS: CEFTRIAXONE 1 GM/D5W RTU 1 GM/50 ML RTUPB IV SCH (09:10)
[2016-12-06] MEDS: FERROUS SULFATE 325 MG TABLET PO SCH ×2 (09:21→17:34)
[2016-12-06] MEDS ORDERED: CALCITRIOL 0.25 MCG CAPSULE PO SCH (10:00)
[2016-12-06] MEDS: LEVOFLOXACIN 250 MG/D5W RTU 250 MG/50 ML RTUPB IV SCH (10:13)
--- NOTE | 2016-12-06 14:30 | PDOC PROGRESS REPORT ---
Subjective Progress Note for:: 12/06/16 Subjective:: I'm seeing the patient during her first dialysis treatment this afternoon. She is very comfortable and tolerating dialysis without any problems or complications. She doesn't really have any complaints or questions. She is feeling much better except for a little bit of a dry cough. Her son came over just to see how she was doing and I answered all of his questions. Her again to continue to monitor the patient during her first initial dialysis treatment. Physical Exam Vital Signs: Temp Pulse Resp BP Pulse Ox 98.2 F 75 18 163/62 H 97 12/06/16 11:21 12/06/16 11:21 12/06/16 11:21 12/06/16 11:21 12/06/16 11:21 Intake & Output 12/05/16 12/06/16 12/07/16 06:59 06:59 06:59 Intake Total 2650 1920 840 Output Total 0 Balance 2650 1920 840 Weight 59 kg Vital signs during dialysis treatment: Blood pressure 166/64, heart rate of 79, blood flow rate of 250 mL per minute, dialysate flow rate of 500 mL per minute. Exam: General appearance: PRESENT: no acute distress, cooperative, well-developed, well-nourished Head exam: PRESENT: atraumatic, normocephalic Eye exam: PRESENT: conjunctiva slightly pale, PERRLA. ABSENT: scleral icterus Neck exam: ABSENT: JVD Respiratory exam: PRESENT: Diminished breath sounds. ABSENT: crackles, rales, rhonchi, unlabored, wheezes Cardiovascular exam: PRESENT: Regular rate rhythm -+S1, +S2. Grade 2/6 systolic murmur GI/Abdominal exam: PRESENT: normal bowel sounds, soft. ABSENT: guarding, mass, tenderness Extremities exam: ABSENT: No edema Neurological exam: PRESENT: alert, awake, oriented to person, place and time. Skin exam: PRESENT: dry, warm, Results Laboratory Results: 12/06/16 05:16 12/06/16 05:16 12/06/16 12/06/16 05:16 05:16 WBC 10.0 RBC 3.73 Hgb 11.5 L Hct 32.9 L MCV 88 MCH 30.8 MCHC 34.9 RDW 15.0 H Plt Count 124 L Seg Neutrophils % 85.1 H Lymphocytes % 6.2 L Monocytes % 7.1 Eosinophils % 1.3 Basophils % 0.3 Absolute Neutrophils 8.5 H Absolute Lymphocytes 0.6 Absolute Monocytes 0.7 Absolute Eosinophils 0.1 Absolute Basophils 0.0 Sodium 140.9 Potassium 4.4 Chloride 107 Carbon Dioxide 22 Anion Gap 12 BUN 72 H Creatinine 3.82 H Est GFR ( Amer) 14 L Est GFR (Non-Af Amer) 11 L Glucose 79 Calcium 8.1 L Impressions: Central Venous Line 12/05/16 00:00 IMPRESSION: IMAGE(S) OBTAINED DURING PROCEDURE. Guidance Fluoroscopy 12/05/16 00:00 IMPRESSION: IMAGE(S) OBTAINED DURING PROCEDURE. Guidance Ultrasound 12/05/16 00:00 IMPRESSION: IMAGE(S) OBTAINED DURING PROCEDURE. Assessment & Plan - Diagnosis (1) Chronic kidney disease, stage V requiring chronic dialysis Is this a current diagnosis for this admission?: YesPlan: We will do dialysis today for 2-1/2 hours, using the patient's right IJ PermCath , with [2] potassium bath, blood flow rate of 250 mL per minute, dialysate flow rate of 500 mL per minute, ultrafiltration liter, [no heparin] and no Procrit during dialysis. We will continue to monitor the patient during dialysis treatment. Next dialysis will be on Friday. We are currently awaiting acceptance of the patient at [facility] for outpatient dialysis treatment. So hopefully after Mondays dialysis patient will be able to go home if accepted by [facility]. Informed the patient and the son about this plan. (2) Diabetic nephropathy Qualifiers: Diabetes mellitus type: type 2 Qualified Code(s): E11.21 - Type 2 diabetes mellitus with diabetic nephropathy Is this a current diagnosis for this admission?: YesPlan: She has underlying nonnephrotic range proteinuria without evidence of paraproteinemia. (3) Urinary tract infection Qualifiers: Urinary tract infection type: site unspecified Hematuria presence: without hematuria Qualified Code(s): N39.0 - Urinary tract infection, site not specified Is this a current diagnosis for this admission?: YesPlan: Due to Escherichia coli. Currently on ceftriaxone and Levaquin per Dr. Miranda. (4) Metabolic encephalopathy Is this a current diagnosis for this admission?: YesPlan: Resolved. (5) Anemia in chronic kidney disease (CKD) Is this a current diagnosis for this admission?: YesPlan: No need of Procrit at this time. Status post blood transfusion. (6) Iron deficiency anemia Is this a current diagnosis for this admission?: YesPlan: Continue ferrous sulfate orally but will switch to IV iron once we start dialysis treatment. (7) Hyperkalemia Is this a current diagnosis for this admission?: YesPlan: Resolved. This should be controlled by dialysis treatment. (8) DM (diabetes mellitus), type 2 with renal complications Qualifiers: Diabetes mellitus [facility] insulin use: with [facility] use Chronic kidney disease stage: stage 5, not on chronic dialysis Is this a current diagnosis for this admission?: Yes (9) HTN (hypertension) Qualifiers: Hypertension type: essential hypertension Qualified Code(s): I10 - Essential (primary) hypertension Is this a current diagnosis for this admission?: YesPlan: Patient's blood pressure is starting to go up I think we need to resume her blood pressure medications slowly so I will resume her Coreg to start with. - Time Time with patient: 15-25 minutes
[2016-12-06] MEDS: FOLIC ACID/VITAMIN B COMP W-C CAPSULE PO SCH (17:34)
--- NOTE | 2016-12-06 18:04 | PDOC PROGRESS REPORT ---
Subjective Progress Note for:: 12/06/16 Subjective:: Patient had first uneventful session of hemodialysis today. No chest pain or difficulty with breathing. No fever or chills. No nausea or vomiting. Family at bedside and patient remain fully participatory in addressing her financial matters! She remain on IV Rocephin coverage for E.Coli UTI. Blood culture is no growth to date. Physical Exam Vital Signs: Temp Pulse Resp BP Pulse Ox 98.2 F 81 18 163/62 H 97 12/06/16 11:21 12/06/16 14:00 12/06/16 11:21 12/06/16 11:21 12/06/16 11:21 Intake & Output 12/05/16 12/06/16 12/07/16 06:59 06:59 06:59 Intake Total 2650 1920 840 Output Total 1000 Balance 2650 1920 -160 Weight 59 kg Physical Exam: General appearance: PRESENT: no acute distress, cooperative Head exam: PRESENT: atraumatic, normocephalic Eye exam: PRESENT: conjunctiva pink, EOMI, PERRLA. ABSENT: scleral icterus Mouth exam: PRESENT: moist Neck exam: PRESENT: full ROM. ABSENT: carotid bruit, JVD, lymphadenopathy, thyromegaly Respiratory exam: PRESENT: clear to auscultation sue Cardiovascular exam: PRESENT: RRR. ABSENT: diastolic murmur, rubs, systolic murmur Vascular exam: PRESENT: normal capillary refill, other - Temporary dialysis catheter over right anterior chest wall GI/Abdominal exam: PRESENT: normal bowel sounds, soft. ABSENT: distended, guarding, mass, organomegaly, rebound, tenderness Extremities exam: PRESENT: full ROM Musculoskeletal exam: PRESENT: ambulatory, deformity - related to joint involvement with arthritis Neurological exam: PRESENT: alert, awake, oriented to person, oriented to place , oriented to time, oriented to situation, CN II-XII grossly intact. ABSENT: motor sensory deficit Psychiatric exam: PRESENT: appropriate affect, normal mood. ABSENT: homicidal ideation, suicidal ideation Skin exam: PRESENT: dry, intact - with satisfactory dressing over temporary catheter site., warm. ABSENT: cyanosis, rash Results Laboratory Results: 12/06/16 05:16 12/06/16 05:16 12/06/16 12/06/16 05:16 05:16 WBC 10.0 RBC 3.73 Hgb 11.5 L Hct 32.9 L MCV 88 MCH 30.8 MCHC 34.9 RDW 15.0 H Plt Count 124 L Seg Neutrophils % 85.1 H Lymphocytes % 6.2 L Monocytes % 7.1 Eosinophils % 1.3 Basophils % 0.3 Absolute Neutrophils 8.5 H Absolute Lymphocytes 0.6 Absolute Monocytes 0.7 Absolute Eosinophils 0.1 Absolute Basophils 0.0 Sodium 140.9 Potassium 4.4 Chloride 107 Carbon Dioxide 22 Anion Gap 12 BUN 72 H Creatinine 3.82 H Est GFR ( Amer) 14 L Est GFR (Non-Af Amer) 11 L Glucose 79 Calcium 8.1 L Impressions: Central Venous Line 12/05/16 00:00 IMPRESSION: IMAGE(S) OBTAINED DURING PROCEDURE. Guidance Fluoroscopy 12/05/16 00:00 IMPRESSION: IMAGE(S) OBTAINED DURING PROCEDURE. Guidance Ultrasound 12/05/16 00:00 IMPRESSION: IMAGE(S) OBTAINED DURING PROCEDURE. Assessment & Plan - Diagnosis (1) Toxic encephalopathy Is this a current diagnosis for this admission?: YesPlan: Resolved. See attending physician orders. (2) Acute kidney injury superimposed on chronic kidney disease Is this a current diagnosis for this admission?: YesPlan: She is improving with renal supplementation therapy. She is in the process of enrollment in outpatient hemodialysis at [facility]. Her workup so far has been negative. See attending physician orders. (3) Urinary tract infection Qualifiers: Urinary tract infection type: site unspecified Hematuria presence: without hematuria Qualified Code(s): N39.0 - Urinary tract infection, site not specified Is this a current diagnosis for this admission?: YesPlan: See attending physician orders. Maintain on current antibiotic coverage. (4) DM (diabetes mellitus), type 2 with renal complications Qualifiers: Diabetes mellitus custodial insulin use: with intermediate school teacher use Chronic kidney disease stage: stage 5, not on chronic dialysis Is this a current diagnosis for this admission?: YesPlan: See attending physician orders. (5) HTN (hypertension) Qualifiers: Hypertension type: essential hypertension Qualified Code(s): I10 - Essential (primary) hypertension Is this a current diagnosis for this admission?: YesPlan: See attending physician orders. (6) HLD (hyperlipidemia) Qualifiers: Hyperlipidemia type: pure hypercholesterolemia Qualified Code(s): E78.00 - Pure hypercholesterolemia, unspecified; E78.0 - Pure hypercholesterolemia Is this a current diagnosis for this admission?: YesPlan: See attending physician orders. (7) 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 Is this a current diagnosis for this admission?: YesPlan: See attending physician orders. - Time Time Spent with patient: 25-34 minutes Medications reviewed and adjusted accordingly: Yes Anticipated discharge: Home Within: Other - Inpatient Certification Medical Necessity: Need Close Monitoring Due to Risk of Patient Decompensation, Need for IV Antibiotics, Risk of Complication if Not Cared For in Hospital Post Hospital Care: D/C Yard Specialist Documentation - Plan Summary Plan Summary: See attending physician orders.
[2016-12-06] MEDS: INSULIN GLARGINE,HUM.REC.ANLOG 300 UNIT/3 ML INSULN.PEN SUBCUT SCH (22:10)
[2016-12-06] MEDS ORDERED: CARVEDILOL 6.25 MG TABLET ONE (22:53)
[2016-12-06] MEDS: CARVEDILOL 6.25 MG TABLET PO SCH (22:59)
[2016-12-07 10:37] LABS: HEPATITIS C QUANTITATION HCV Not Detected IU/mL (.)
[2016-12-07] MEDS: CEFTRIAXONE 1 GM/D5W RTU 1 GM/50 ML RTUPB IV SCH (11:45)
[2016-12-07] MEDS: FERROUS SULFATE 325 MG TABLET PO SCH ×2 (11:45→18:07)
[2016-12-07] MEDS: CARVEDILOL 6.25 MG TABLET PO SCH ×2 (12:27→21:49)
--- NOTE | 2016-12-07 16:16 | PDOC PROGRESS REPORT ---
Subjective Progress Note for:: 12/07/16 Subjective:: She was seen by the bedside there is no new complaint Physical Exam Vital Signs: Temp Pulse Resp BP Pulse Ox 98.7 F 69 16 157/61 H 97 12/07/16 15:13 12/07/16 15:13 12/07/16 15:13 12/07/16 15:13 12/07/16 15:13 Intake & Output 12/06/16 12/07/16 12/08/16 06:59 06:59 06:59 Intake Total 1920 1340 480 Output Total 1000 200 Balance 1920 340 280 Weight 59 kg 59.5 kg General appearance: PRESENT: no acute distress Eye exam: PRESENT: PERRLA Respiratory exam: PRESENT: clear to auscultation sue Cardiovascular exam: PRESENT: +S1, +S2 Results Laboratory Results: 12/06/16 05:16 12/06/16 05:16 Impressions: Central Venous Line 12/05/16 00:00 IMPRESSION: IMAGE(S) OBTAINED DURING PROCEDURE. Guidance Fluoroscopy 12/05/16 00:00 IMPRESSION: IMAGE(S) OBTAINED DURING PROCEDURE. Guidance Ultrasound 12/05/16 00:00 IMPRESSION: IMAGE(S) OBTAINED DURING PROCEDURE. Assessment & Plan - Diagnosis (2) Anemia in chronic kidney disease (CKD) Is this a current diagnosis for this admission?: Yes (3) 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 Is this a current diagnosis for this admission?: Yes (4) Chronic kidney disease, stage V requiring chronic dialysis Is this a current diagnosis for this admission?: Yes (5) DM (diabetes mellitus), type 2 with renal complications Qualifiers: Diabetes mellitus intermodal truck driver insulin use: with intermodal truck driver use Chronic kidney disease stage: stage 5, not on chronic dialysis Is this a current diagnosis for this admission?: Yes (6) Diabetic nephropathy Qualifiers: Diabetes mellitus type: type 2 Qualified Code(s): E11.21 - Type 2 diabetes mellitus with diabetic nephropathy Is this a current diagnosis for this admission?: Yes (7) HLD (hyperlipidemia) Qualifiers: Hyperlipidemia type: pure hypercholesterolemia Qualified Code(s): E78.00 - Pure hypercholesterolemia, unspecified; E78.0 - Pure hypercholesterolemia Is this a current diagnosis for this admission?: Yes (8) Urinary tract infection Qualifiers: Urinary tract infection type: site unspecified Hematuria presence: without hematuria Qualified Code(s): N39.0 - Urinary tract infection, site not specified Is this a current diagnosis for this admission?: Yes - Plan Summary Plan Summary: She will continue present treatment
[2016-12-07] MEDS: FOLIC ACID/VITAMIN B COMP W-C CAPSULE PO SCH (18:07)
[2016-12-07] MEDS: INSULIN GLARGINE,HUM.REC.ANLOG 300 UNIT/3 ML INSULN.PEN SUBCUT SCH (21:49)
[2016-12-08] MEDS: FERROUS SULFATE 325 MG TABLET PO SCH ×2 (10:28→17:53)
[2016-12-08] MEDS: CARVEDILOL 6.25 MG TABLET PO SCH ×2 (10:28→21:55)
[2016-12-08] MEDS: CEFTRIAXONE 1 GM/D5W RTU 1 GM/50 ML RTUPB IV SCH (10:29)
[2016-12-08] MEDS: LEVOFLOXACIN 250 MG/D5W RTU 250 MG/50 ML RTUPB IV SCH (10:31)
--- NOTE | 2016-12-08 15:27 | PDOC PROGRESS REPORT ---
Subjective Progress Note for:: 12/08/16 Subjective:: Patient is doing well and pretty stable. She does not have any complaints. Her blood pressures started to go up since yesterday. Physical Exam Vital Signs: Temp Pulse Resp BP Pulse Ox 98.6 F 70 17 184/62 H 98 12/08/16 11:23 12/08/16 11:23 12/08/16 11:23 12/08/16 11:23 12/08/16 11:23 Intake & Output 12/07/16 12/08/16 12/09/16 06:59 06:59 06:59 Intake Total 8267 937 5958 Output Total 1000 200 200 Balance 832 691 7484 Weight 59.5 kg Exam: General appearance: PRESENT: no acute distress, cooperative, well-developed, well-nourished Head exam: PRESENT: atraumatic, normocephalic Eye exam: PRESENT: conjunctiva pink, PERRLA. ABSENT: scleral icterus Neck exam: ABSENT: JVD Respiratory exam: PRESENT: Diminished breath sounds. ABSENT: crackles, rales, rhonchi, unlabored, wheezes Cardiovascular exam: PRESENT: Regular rate rhythm -+S1, +S2. Grade 2/6 systolic murmur GI/Abdominal exam: PRESENT: normal bowel sounds, soft. ABSENT: guarding, mass, tenderness Extremities exam: ABSENT: No edema Neurological exam: PRESENT: alert, awake, oriented to person, place and time. Skin exam: PRESENT: dry, warm, Results Laboratory Results: 12/06/16 05:16 12/06/16 05:16 Impressions: Central Venous Line 12/05/16 00:00 IMPRESSION: IMAGE(S) OBTAINED DURING PROCEDURE. Guidance Fluoroscopy 12/05/16 00:00 IMPRESSION: IMAGE(S) OBTAINED DURING PROCEDURE. Guidance Ultrasound 12/05/16 00:00 IMPRESSION: IMAGE(S) OBTAINED DURING PROCEDURE. Assessment & Plan - Diagnosis (1) Chronic kidney disease, stage V requiring chronic dialysis Is this a current diagnosis for this admission?: YesPlan: We'll continue hemodialysis support while here in the hospital on Mondays, Wednesdays and Fridays. Awaiting arrangement for outpatient hemodialysis treatment at [facility]. (2) Diabetic nephropathy Qualifiers: Diabetes mellitus type: type 2 Qualified Code(s): E11.21 - Type 2 diabetes mellitus with diabetic nephropathy Is this a current diagnosis for this admission?: YesPlan: She has underlying nonnephrotic range proteinuria without evidence of paraproteinemia. (3) Urinary tract infection Qualifiers: Urinary tract infection type: site unspecified Hematuria presence: without hematuria Qualified Code(s): N39.0 - Urinary tract infection, site not specified Is this a current diagnosis for this admission?: YesPlan: Due to Escherichia coli. Currently on ceftriaxone and Levaquin per Dr. Miranda. (4) Metabolic encephalopathy Is this a current diagnosis for this admission?: YesPlan: Resolved. (5) Anemia in chronic kidney disease (CKD) Is this a current diagnosis for this admission?: YesPlan: No need of Procrit at this time. Status post blood transfusion. (6) Iron deficiency anemia Is this a current diagnosis for this admission?: YesPlan: Continue ferrous sulfate orally but will switch to IV iron once we start dialysis treatment. (7) Hyperkalemia Is this a current diagnosis for this admission?: YesPlan: Resolved. This should be controlled by dialysis treatment. (8) DM (diabetes mellitus), type 2 with renal complications Qualifiers: Diabetes mellitus assisted insulin use: with assisted use Chronic kidney disease stage: stage 5, not on chronic dialysis Is this a current diagnosis for this admission?: Yes (9) HTN (hypertension) Qualifiers: Hypertension type: essential hypertension Qualified Code(s): I10 - Essential (primary) hypertension Is this a current diagnosis for this admission?: YesPlan: Uncontrolled. Resume Doxazosin and Procardia as per home meds. - Time Time with patient: 15-25 minutes
[2016-12-08] MEDS ORDERED: NIFEDIPINE 30 MG TAB.ER.24 PO ONE ×2 (16:00→17:00)
[2016-12-08] MEDS: FOLIC ACID/VITAMIN B COMP W-C CAPSULE PO SCH (16:11)
[2016-12-08] MEDS ORDERED: HEPARIN SOD (PORCINE) 1,000 UNIT/ML 10 ML VIAL IV PRN (16:15)
--- NOTE | 2016-12-08 18:57 | PDOC PROGRESS REPORT ---
Subjective Progress Note for:: 12/08/16 Subjective:: The blood pressure is elevated Physical Exam Vital Signs: Temp Pulse Resp BP Pulse Ox 98.5 F 71 17 184/58 H 97 12/08/16 15:36 12/08/16 15:36 12/08/16 15:36 12/08/16 15:36 12/08/16 15:36 Intake & Output 12/07/16 12/08/16 12/09/16 06:59 06:59 06:59 Intake Total 7240 851 4952 Output Total 1000 200 200 Balance 861 143 6356 Weight 59.5 kg General appearance: PRESENT: no acute distress Eye exam: PRESENT: PERRLA Respiratory exam: PRESENT: clear to auscultation sue Cardiovascular exam: PRESENT: +S1, +S2 Neurological exam: PRESENT: alert Results Laboratory Results: 12/06/16 05:16 12/06/16 05:16 Impressions: Central Venous Line 12/05/16 00:00 IMPRESSION: IMAGE(S) OBTAINED DURING PROCEDURE. Guidance Fluoroscopy 12/05/16 00:00 IMPRESSION: IMAGE(S) OBTAINED DURING PROCEDURE. Guidance Ultrasound 12/05/16 00:00 IMPRESSION: IMAGE(S) OBTAINED DURING PROCEDURE. Assessment & Plan - Diagnosis (1) Acute encephalopathy Is this a current diagnosis for this admission?: Yes (2) Anemia in chronic kidney disease (CKD) Is this a current diagnosis for this admission?: Yes (3) 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 Is this a current diagnosis for this admission?: Yes (4) Chronic kidney disease, stage V requiring chronic dialysis Is this a current diagnosis for this admission?: Yes (5) DM (diabetes mellitus), type 2 with renal complications Qualifiers: Diabetes mellitus intermodal owner operator truck driver insulin use: with usp use Chronic kidney disease stage: stage 5, not on chronic dialysis Is this a current diagnosis for this admission?: Yes (6) Diabetic nephropathy Qualifiers: Diabetes mellitus type: type 2 Qualified Code(s): E11.21 - Type 2 diabetes mellitus with diabetic nephropathy Is this a current diagnosis for this admission?: Yes (7) HLD (hyperlipidemia) Qualifiers: Hyperlipidemia type: pure hypercholesterolemia Qualified Code(s): E78.00 - Pure hypercholesterolemia, unspecified; E78.0 - Pure hypercholesterolemia Is this a current diagnosis for this admission?: Yes (8) Urinary tract infection Qualifiers: Urinary tract infection type: site unspecified Hematuria presence: without hematuria Qualified Code(s): N39.0 - Urinary tract infection, site not specified Is this a current diagnosis for this admission?: Yes (9) Essential hypertension Is this a current diagnosis for this admission?: YesPlan: Patient to be started on blood pressure medication
[2016-12-08] MEDS: ACETAMINOPHEN 325 MG TABLET PO PRN (21:55)
[2016-12-08] MEDS: INSULIN GLARGINE,HUM.REC.ANLOG 300 UNIT/3 ML INSULN.PEN SUBCUT SCH (21:55)
[2016-12-08] MEDS ORDERED: DOXAZOSIN MESYLATE 1 MG TABLET PO SCH (22:00)
[2016-12-09 06:12] LABS: ABSOLUTE BASOPHILS # (AUTO) 0.1 10^3/uL (0.0-0.2); ABSOLUTE EOSINOPHILS # (AUTO) 0.4 10^3/uL (0.0-0.6); ABSOLUTE LYMPHOCYTES (AUTO) 1.1 10^3/uL (0.5-4.7); ABSOLUTE MONOCYTES (AUTO) 0.9 10^3/uL (0.1-1.4); ABSOLUTE NEUT (AUTO) 8.2 10^3/uL (1.7-8.2); BASOPHILS % (AUTO) 0.9 % (0-2); EOSINOPHILS % (AUTO) 3.6 % (0-6); HEMATOCRIT 32.9 % (36.0-47.0); HEMOGLOBIN 11.5 g/dL (12.0-15.5); HGB HCT DIFFERENCE 1.6; MEAN CORPUSCULAR HEMOGLOBIN 30.7 pg (27.0-33.4); MEAN CORPUSCULAR HGB CONC 34.9 g/dL (32.0-36.0); MEAN CORPUSCULAR VOLUME 88 fl (80-97); MONOCYTES % (AUTO) 8.6 % (3-13); RED BLOOD COUNT 3.74 10^6/uL (3.72-5.28); RED CELL DISTRIBUTION WIDTH 14.2 % (11.5-14.0); SEGMENTED NEUTROPHILS % (AUTO) 76.9 % (42-78); WHITE BLOOD COUNT 10.6 10^3/uL (4.0-10.5)
[2016-12-09 06:32] LABS: ANION GAP 14 (5-19); BLOOD UREA NITROGEN 56 mg/dL (7-20); CALCIUM 8.5 mg/dL (8.4-10.2); CARBON DIOXIDE 22 mmol/L (22-30); CHLORIDE 103 mmol/L (98-107); CREATININE RESULT 3.45 mg/dL (0.52-1.25); GLUCOSE 101 mg/dL (75-110); MAGNESIUM 2.3 mg/dL (1.6-2.3); PHOSPHORUS 4.7 mg/dL (2.5-4.5); POTASSIUM 4.1 mmol/L (3.6-5.0); SODIUM 138.5 mmol/L (137-145)
--- NOTE | 2016-12-09 13:03 | PDOC DISCHARGE SUMMARY ---
General - Admit/Disc Date/PCP Admission Date/Primary Care Provider: 12/04/16 02:22 SHAINA BELTRE Discharge Date: 12/09/16 - Discharge Diagnosis (1) Toxic encephalopathy Is this a current diagnosis for this admission?: Yes (2) Acute kidney injury superimposed on chronic kidney disease Is this a current diagnosis for this admission?: Yes (3) Urinary tract infection Is this a current diagnosis for this admission?: Yes (4) DM (diabetes mellitus), type 2 with renal complications Is this a current diagnosis for this admission?: Yes (5) HTN (hypertension) Is this a current diagnosis for this admission?: Yes (6) HLD (hyperlipidemia) Is this a current diagnosis for this admission?: Yes (7) 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 Is this a current diagnosis for this admission?: Yes - Additional Information Resuscitation Status: Full Code Discharge Activity: Activity As Tolerated Home Medications: Insulin Glargine,Hum.rec.anlog [Lantus Insulin 100 Unit/mL] 14 unit SUBCUT QHS # 5 06/22/13 Calcitriol 1 cap PO DAILY 01/04/15 Ferrous Sulfate [Iron] 325 mg PO DAILY 01/04/15 Nifedipine [Procardia XL 30 mg Tablet] 30 mg PO QPM 01/04/15 Nifedipine [Procardia XL 30 mg Tablet] 90 mg PO QAM 01/04/15 Terazosin HCl 1 mg PO DAILY 01/04/15 Carvedilol [Coreg] 1 tab PO BID 12/03/16 Docusate Sodium [Colace 100 mg Capsule] 1 cap PO DAILY PRN 12/03/16 Furosemide [Lasix] 40 mg PO DAILY 12/03/16 History of Present Illness History of Present Illness: RAFIA READ is a 75 year old female known to my practice who was brought to the ED with above complaints. Family reported that patient has become more lethargic and confused with disorientation to people and place. Son reported poor appetite and food intake for couple of days. Patient reported episode of nausea and vomiting prior to arrival in the ED. Patient denied abdominal pain. No chest pain or difficulty with breathing. Patient's comorbidities include HTN , ESRD, DM type 2, and Osteoarthritis. Her initial evaluation in the ED did suggest possible sepsis with abnormal urinalysis, leukocytosis, and ESRD with hyperkalemia. Hospital Course Hospital Course: Patient was managed for acute on chronic renal failure with adjustment in her diuretic therapy and IV fluid support. She was seen in consultation by Dr Sherwood, broadcast operations technician, and Yrn Walton, vascular surgeon, during this hospitalization for hemodialysis renal supplementation therapy upon her agreement to this treatment. Her urine culture did grew E.Coli sensitive to both onboard antibiotic therapy including Levofloxacin and Rocephin. At present , she has had enough antibiotic therapy and will be discharge without further coverage. She will be dialyzed before discharge home today and follow up at [facility] [place] locally for further treatment on outpatient bases. She raul follow up with Dr Sherwood as instructed upon discharge and see me in office as noted in discharge plan.. Physical Exam Vital Signs: Temp Pulse Resp BP Pulse Ox 98.0 F 69 12 138/53 H 97 12/09/16 12:23 12/09/16 12:23 12/09/16 12:23 12/09/16 12:23 12/09/16 12:23 Intake & Output 12/08/16 12/09/16 12/10/16 06:59 06:59 06:59 Intake Total 910 1880 200 Output Total 200 300 Balance 710 1580 200 Weight 62.4 kg Physical Exam: General appearance: PRESENT: no acute distress, cooperative Head exam: PRESENT: atraumatic, normocephalic Eye exam: PRESENT: conjunctiva pink, EOMI, PERRLA. ABSENT: scleral icterus Mouth exam: PRESENT: moist Neck exam: PRESENT: full ROM. ABSENT: carotid bruit, JVD, lymphadenopathy, thyromegaly Respiratory exam: PRESENT: clear to auscultation sue Cardiovascular exam: PRESENT: RRR. ABSENT: diastolic murmur, rubs, systolic murmur Vascular exam: PRESENT: normal capillary refill, other - Temporary dialysis catheter over right anterior chest wall GI/Abdominal exam: PRESENT: normal bowel sounds, soft. ABSENT: distended, guarding, mass, organomegaly, rebound, tenderness Extremities exam: PRESENT: full ROM Musculoskeletal exam: PRESENT: ambulatory, deformity - related to joint involvement with arthritis Neurological exam: PRESENT: alert, awake, oriented to person, oriented to place , oriented to time, oriented to situation, CN II-XII grossly intact. ABSENT: motor sensory deficit Psychiatric exam: PRESENT: appropriate affect, normal mood. ABSENT: homicidal ideation, suicidal ideation Skin exam: PRESENT: dry, intact - with satisfactory dressing over temporary catheter site., warm. ABSENT: cyanosis, rash Results Laboratory Results: 12/09/16 05:55 12/09/16 05:55 12/09/16 12/09/16 05:55 05:55 WBC 10.6 H RBC 3.74 Hgb 11.5 L Hct 32.9 L MCV 88 MCH 30.7 MCHC 34.9 RDW 14.2 H Plt Count 134 L Seg Neutrophils % 76.9 Lymphocytes % 10.0 L Monocytes % 8.6 Eosinophils % 3.6 Basophils % 0.9 Absolute Neutrophils 8.2 Absolute Lymphocytes 1.1 Absolute Monocytes 0.9 Absolute Eosinophils 0.4 Absolute Basophils 0.1 Sodium 138.5 Potassium 4.1 Chloride 103 Carbon Dioxide 22 Anion Gap 14 BUN 56 H Creatinine 3.45 H Est GFR ( Amer) 16 L Est GFR (Non-Af Amer) 13 L Glucose 101 Calcium 8.5 Phosphorus 4.7 H Magnesium 2.3 12/04/16 05:18 Blood Blood Culture - Final NO GROWTH IN 5 DAYS Impressions: Central Venous Line 12/05/16 00:00 IMPRESSION: IMAGE(S) OBTAINED DURING PROCEDURE. Guidance Fluoroscopy 12/05/16 00:00 IMPRESSION: IMAGE(S) OBTAINED DURING PROCEDURE. Guidance Ultrasound 12/05/16 00:00 IMPRESSION: IMAGE(S) OBTAINED DURING PROCEDURE. Qualifiers PATEINT BEING DISCHARGED WITH ANY OF THE FOLLOWING DIAGNOSIS?: No Plan Discharge Plan: D/C home today after hemodialysis schedule. Follow up with Dr Sherwood and at [facility] for hemodialysis treatment. Follow up with me in office as instructed upon discharge.. Time Spent: Less than 30 Minutes
--- NOTE | 2016-12-09 14:44 | PDOC PROGRESS REPORT ---
Subjective Progress Note for:: 12/09/16 Subjective:: I'm seeing the patient during dialysis this afternoon. She is doing well and very comfortable with treatment. She is tolerating dialysis without any problems. She will be sent home after dialysis today. Physical Exam Vital Signs: Temp Pulse Resp BP Pulse Ox 98.0 F 69 12 138/53 H 97 12/09/16 12:23 12/09/16 12:23 12/09/16 12:23 12/09/16 12:23 12/09/16 12:23 Intake & Output 12/08/16 12/09/16 12/10/16 06:59 06:59 06:59 Intake Total 910 1880 200 Output Total 200 300 Balance 710 1580 200 Weight 62.4 kg Vitals during dialysis: Blood pressure 132/66, heart rate 73, dialysate flow rate 250 mL per minute, dialysate flow rate 500 mL per minute. Exam: General appearance: PRESENT: no acute distress, cooperative, well-developed, well-nourished Head exam: PRESENT: atraumatic, normocephalic Eye exam: PRESENT: conjunctiva pink, PERRLA. ABSENT: scleral icterus Neck exam: ABSENT: JVD Respiratory exam: PRESENT: Normal breath sounds. ABSENT: crackles, rales, rhonchi, unlabored, wheezes Cardiovascular exam: PRESENT: Regular rate rhythm -+S1, +S2. Grade 2/6 systolic murmur GI/Abdominal exam: PRESENT: normal bowel sounds, soft. ABSENT: guarding, mass, tenderness Extremities exam: ABSENT: No edema Neurological exam: PRESENT: alert, awake, oriented to person, place and time. Skin exam: PRESENT: dry, warm, Results Laboratory Results: 12/09/16 05:55 12/09/16 05:55 12/09/16 12/09/16 05:55 05:55 WBC 10.6 H RBC 3.74 Hgb 11.5 L Hct 32.9 L MCV 88 MCH 30.7 MCHC 34.9 RDW 14.2 H Plt Count 134 L Seg Neutrophils % 76.9 Lymphocytes % 10.0 L Monocytes % 8.6 Eosinophils % 3.6 Basophils % 0.9 Absolute Neutrophils 8.2 Absolute Lymphocytes 1.1 Absolute Monocytes 0.9 Absolute Eosinophils 0.4 Absolute Basophils 0.1 Sodium 138.5 Potassium 4.1 Chloride 103 Carbon Dioxide 22 Anion Gap 14 BUN 56 H Creatinine 3.45 H Est GFR ( Amer) 16 L Est GFR (Non-Af Amer) 13 L Glucose 101 Calcium 8.5 Phosphorus 4.7 H Magnesium 2.3 12/04/16 05:18 Blood Blood Culture - Final NO GROWTH IN 5 DAYS Impressions: Central Venous Line 12/05/16 00:00 IMPRESSION: IMAGE(S) OBTAINED DURING PROCEDURE. Guidance Fluoroscopy 12/05/16 00:00 IMPRESSION: IMAGE(S) OBTAINED DURING PROCEDURE. Guidance Ultrasound 12/05/16 00:00 IMPRESSION: IMAGE(S) OBTAINED DURING PROCEDURE. Assessment & Plan - Diagnosis (1) Chronic kidney disease, stage V requiring chronic dialysis Is this a current diagnosis for this admission?: YesPlan: We will do dialysis today for [3] hours, using the patient's right IJ PermCath, with [2] potassium bath, blood flow rate of to 250 mL per minute, dialysate flow rate of 500 mL per minute, ultrafiltration 1 L, [no heparin] and no Procrit during dialysis. Patient will be dialyzed next at [facility] dialysis unit on . I will follow her up there as an outpatient. (2) Diabetic nephropathy Qualifiers: Diabetes mellitus type: type 2 Qualified Code(s): E11.21 - Type 2 diabetes mellitus with diabetic nephropathy Is this a current diagnosis for this admission?: YesPlan: She has underlying nonnephrotic range proteinuria without evidence of paraproteinemia. (3) Urinary tract infection Qualifiers: Urinary tract infection type: site unspecified Hematuria presence: without hematuria Qualified Code(s): N39.0 - Urinary tract infection, site not specified Is this a current diagnosis for this admission?: YesPlan: Due to Escherichia coli. Currently on ceftriaxone and Levaquin per Dr. Miranda. (4) Metabolic encephalopathy Is this a current diagnosis for this admission?: YesPlan: Resolved. (5) Anemia in chronic kidney disease (CKD) Is this a current diagnosis for this admission?: YesPlan: No need of Procrit at this time. Status post blood transfusion. (6) Iron deficiency anemia Is this a current diagnosis for this admission?: YesPlan: Continue ferrous sulfate orally but will switch to IV iron once we start dialysis treatment. (7) Hyperkalemia Is this a current diagnosis for this admission?: YesPlan: Resolved. This should be controlled by dialysis treatment. (8) DM (diabetes mellitus), type 2 with renal complications Qualifiers: Diabetes mellitus ocean transportation intermediary insulin use: with ocean transportation intermediary use Chronic kidney disease stage: stage 5, not on chronic dialysis Is this a current diagnosis for this admission?: Yes (9) HTN (hypertension) Qualifiers: Hypertension type: essential hypertension Qualified Code(s): I10 - Essential (primary) hypertension Is this a current diagnosis for this admission?: YesPlan: Uncontrolled. Resume Doxazosin and Procardia as per home meds. - Time Time with patient: 15-25 minutes Disposition: Agreed to be discharged today after dialysis. Continue all current medications.
[2016-12-09] MEDS: FOLIC ACID/VITAMIN B COMP W-C CAPSULE PO SCH (17:39)
[2016-12-09] MEDS: FERROUS SULFATE 325 MG TABLET PO SCH (17:39)
[2016-12-09 17:49] VITALS: BP 109/60
== END 2016-12-09 18:10 | disposition home or self-care (01) | DRG 682 ==
LOC: ER 14:44 → EH 21:48 → UNDOADMIN 21:48 → EH 12-04 00:10 → 4W 12-04 00:10 → EH 12-04 02:22 → 4W 12-04 02:22
PROVIDERS: ADMIT Internal Medicine Geriatric Medicine; ATTEND Internal Medicine Geriatric Medicine
PROC: 30233N1 Transfusion of Nonautologous Red Blood Cells into Peripheral Vein, Percutaneous Approach (ICD-10-PCS; 2016-12-04)
PROC: 05HM33Z Insertion of Infusion Device into Right Internal Jugular Vein, Percutaneous Approach (ICD-10-PCS; principal; 2016-12-05)
PROC: B543ZZA Ultrasonography of Right Jugular Veins, Guidance (ICD-10-PCS; 2016-12-05)
PROC: 5A1D00Z (ICD-10-PCS; 2016-12-06)
PROC: 5A1D00Z (ICD-10-PCS; 2016-12-09)
DX: N17.9 Acute kidney failure, unspecified (principal); G93.41 Metabolic encephalopathy; N39.0 Urinary tract infection, site not specified; B96.20 Unspecified Escherichia coli [E. coli] as the cause of diseases classified elsewhere; I12.0 Hypertensive chronic kidney disease with stage 5 chronic kidney disease or end stage renal disease; N18.5 Chronic kidney disease, stage 5; E11.22 Type 2 diabetes mellitus with diabetic chronic kidney disease; E11.21 Type 2 diabetes mellitus with diabetic nephropathy; Z99.2 Dependence on renal dialysis; D63.1 Anemia in chronic kidney disease; E87.5 Hyperkalemia; E21.3 Hyperparathyroidism, unspecified; E11.319 Type 2 diabetes mellitus with unspecified diabetic retinopathy without macular edema; M19.90 Unspecified osteoarthritis, unspecified site; Z79.4 Long term (current) use of insulin; Z79.899 Other long term (current) drug therapy; Z87.891 Personal history of nicotine dependence
CPT/HCPCS: 36415; 36430; 36558; 76937; 77001; 80048; 80053; 81001; 82962; 83690; 83735; 84100; 85025; 86317; 86704; 86850; 86900; 86901; 86920; 87040; 87086; 87088; 87186; 87340; 87522; 99285; C1752; J0690; J0696; J1644; J1815; J1940; J1956; J2250; J2405; J3010; J3490; J7030; P9016; Q9967

== ENCOUNTER 2017-01-13 08:55 | Day surgery (SDC) | payer MEDICARE, MEDICAID ==
[2017-01-08 11:06] LABS: HEMATOCRIT 31.8 % (36.0-47.0); HEMOGLOBIN 11.2 g/dL (12.0-15.5); HGB HCT DIFFERENCE 1.8; MEAN CORPUSCULAR HGB CONC 35.3 g/dL (32.0-36.0); MEAN CORPUSCULAR VOLUME 88 fl (80-97); RED BLOOD COUNT 3.62 10^6/uL (3.72-5.28); RED CELL DISTRIBUTION WIDTH 14.9 % (11.5-14.0); WHITE BLOOD COUNT 7.4 10^3/uL (4.0-10.5)
[2017-01-08 11:58] LABS: ANION GAP 17 (5-19); BLOOD UREA NITROGEN 24 mg/dL (7-20); CALCIUM 9.8 mg/dL (8.4-10.2); CARBON DIOXIDE 25 mmol/L (22-30); CHLORIDE 95 mmol/L (98-107); CREATININE RESULT 2.92 mg/dL (0.52-1.25); GLUCOSE 156 mg/dL (75-110); POTASSIUM 4.2 mmol/L (3.6-5.0); SODIUM 137.3 mmol/L (137-145)
--- NOTE | 2017-01-08 19:06 | EKG REPORT ---
SEVERITY:- ABNORMAL ECG - SINUS RHYTHM NONSPECIFIC ST-T CHANGES ANTEROLATERAL LEADS : Confirmed by: Hayes Crane MD 08-Jan-2017 19:06:12
[~2017-01-13 08:55] MED LIST: CEFAZOLIN 1 GM/D5W RTU 1 GM/50 ML RTUPB IV PRN; HEPARIN SOD (PORCINE) 1,000 UNIT/ML 10 ML VIAL ONE; LIDOCAINE 0.5% INJ-PF (5 MG/ML) 50 ML SDV SUBCUT PRN; NORMAL SALINE 1000 ML (RENAL PATIENTS) IV PRN
[2017-01-13] MEDS ORDERED: LIDOCAINE 0.5% INJ-PF (5 MG/ML) 50 ML SDV ONE ×4 (08:56→11:06)
[2017-01-13] MEDS ORDERED: HEPARIN SOD (PORCINE) 1,000 UNIT/ML 10 ML VIAL ONE (08:56)
[2017-01-13] MEDS ORDERED: BUPIVACAINE HCL 0.25 % INJ/PF (2.5 MG/1 ML) 30 ML VIAL ONE ×4 (08:56→11:06)
[2017-01-13] MEDS ORDERED: BACITRACIN INJ 50,000 UNIT VIAL ONE ×2 (08:57)
[2017-01-13] MEDS ORDERED: LIDOCAINE 1% INJ-PF (10 MG/ML) 30 ML SDV ONE (08:58)
[2017-01-13] MEDS ORDERED: HEPARIN SODIUM,PORCINE/NS/PF 0 UNIT/0 ML RTUINJ IV ONE (08:59)
[2017-01-13 10:05] LABS: POTASSIUM 4.7 mmol/L (3.6-5.0)
[2017-01-13] MEDS ORDERED: NITROGLYCERIN/D5W 50 MG/250 ML RTUINJ IV ONE (11:08)
[2017-01-13] MEDS ORDERED: KETAMINE HCL INJ 500 MG/10 ML VIAL ONE (11:24)
[2017-01-13] MEDS ORDERED: MIDAZOLAM 2 MG/2 ML INJ ONE ×2 (11:24→11:25)
[2017-01-13] MEDS ORDERED: FENTANYL CITRATE INJ/PF 100 MCG/2 ML AMPUL ONE (11:24)
[2017-01-13] MEDS ORDERED: PROPOFOL INJ 200 MG/20 ML VIAL IV ONE (11:25)
[2017-01-13] MEDS ORDERED: FENTANYL CITRATE INJ/PF 100 MCG/2 ML AMPUL IV PRN ×3 (13:13)
[2017-01-13] MEDS ORDERED: MEPERIDINE HCL/PF INJ 25 MG/1 ML DISP.SYRIN IV PRN (13:13)
[2017-01-13] MEDS ORDERED: MORPHINE SULFATE 10 MG/ML INJ IV PRN (13:13)
[2017-01-13] MEDS ORDERED: OXYCODONE-ACETAMINOPHEN 5-325 MG TABLET PO PRN ×3 (13:13→14:22)
[2017-01-13] MEDS ORDERED: DIPHENHYDRAMINE HCL 50 MG/ML VIAL IV PRN (13:13)
[2017-01-13] MEDS ORDERED: PROMETHAZINE HCL INJ 25 MG/1 ML VIAL IV PRN ×2 (13:13)
--- NOTE | 2017-01-13 13:38 | PDOC DISCHARGE SUMMARY ---
Discharge Summary (SDC) - Discharge Final Diagnosis: #1 end-stage renal disease on hemodialysis. #2 permanent central venous catheter placed #3 history of GI bleed. #4 diabetes mellitus type II. #5 hypertension. Date of Surgery: 01/13/17 Discharge Date: 01/13/17 Condition: Fair Treatment or Instructions: #1 activities within moderation encouraged. #2 follow up in my office by appointment in about 1 week. Call for appointment. #3 the wounds covered clean and dry until office visit. #4 hold off on school/work until evaluation in office. #5 may shower in 48 hours, keep operated area as dry as possible. #6 discharge from ambulatory when ASU criteria met. #7 medications per medication reconciliation sheet. #8 Percocet by prescription.. Also may have one Percocet up to every 4 hours when necessary for pain greater than 4 out of 10 while in the ASU Prescriptions: Oxycodone HCl/Acetaminophen [Percocet 5-325 mg Tablet] 1 tab PO ASDIR PRN #15 tab PRN Reason: Discharge Diet: Other (Comments) - Renal Respiratory Treatments at Home: Deep Breathing/Coughing Discharge Activity: Activity As Tolerated Report the Following to Your Physician Immediately: Unusual Bleeding
--- NOTE | 2017-01-13 13:59 | Operative Report ---
Operative Report DATE OF SURGERY: 01/13/17 PREOPERATIVE DIAGNOSIS: #[address] #2 end-stage renal disease on hemodialysis. #3 diabetes mellitus type II. #4 hypertension. POSTOPERATIVE DIAGNOSIS: #[address] #2 end-stage renal disease on hemodialysis. #3 diabetes mellitus type II. #4 hypertension. OPERATION: Insertion of the first stage left transposed basilic vein fistula. SURGEON: STEVEN YOUNG BED BUG EXTERMINATOR: none ANESTHESIA: LMAC TISSUE REMOVED OR ALTERED: Not applicable COMPLICATIONS: None ESTIMATED BLOOD LOSS: 10 milliliters. INTRAOPERATIVE FINDINGS: Of a small size basilic vein fistula which accommodated a 3 mm coronary later. The artery somewhat diseased with ring to calcification and atherosclerosis. Seems adequate to support fistula. Fistula function satisfactory with the port appropriate Doppler signals distal vascularity and satisfactory auscultated tubal bruit at end of the procedure. PROCEDURE: Operative Report PROCEDURE: After reviewing the procedure with the patient, [she] was taken to the operating room. The patient was sedated and the left upper extremity] prepared with chlorhexidine and draped out with sterile linen. After the "" universal timeout", in which it was verified that the patient [received IV antibiotics] the procedure commenced. The sterilely sheathed ultrasound probe was used to evaluate the left upper venous and arterial systems, pertinent to the previously done vein mapping. Local anesthesia was infiltrated and a longitudinal incision made over the lower arm near the antecubital fossa. Dissection proceeded through the subcutaneous tissues down to the basilic vein. The vein was dissected out proximally and distally for about 4 cm. Likewise major branches. The brachial artery dissected out for a distance of about 1.5 cm. Rubber loops were placed on either end. The patient was given 2500 units of heparin intravenously. Coronary dilators were accepted [up to 3 mm]. The artery was controlled proximally and distally with rubber loops. An arteriotomy approximately [1.5 cm] in length was made, the artery was irrigated proximally and distally with heparinized solution. The transected vein was now spatulated , the vein mouth technique, it was then anastomosed end to end to side into the brachial artery. This was done using a continuous suture of 6-0 Prolene. Controls of the fistula were now released and it was analyzed using a Doppler probe. Hemostasis was secured once optimal function was assured, the wound was irrigated with antibiotic containing solution and closed. The redundant vein was now transposed into the subcutaneous tissue laterally, to facilitate second stage. . Closure was done using interrupted 3-0 PDS for the subcutaneous tissues. The skin was closed using a continuous subcutaneous suture of 4-0 Monocryl which was reinforced with Steri-Strips over benzoin. I then left the operative field and returned with a stethoscope covered with a sterile Tegaderm dressing. This allowed external auscultation of the fistula. Auscultation was [satisfactory]. The procedure was concluded by applying a Kerlix dressing over the surgical site. DICTATING PHYSICIAN: STEVEN ROACH M.D.
[2017-01-13] MEDS ORDERED: OXYCODONE-ACETAMINOPHEN 5-325 MG TABLET ONE (14:22)
[2017-01-13 15:57] VITALS: BP 120/56
== END 2017-01-13 15:30 | disposition home or self-care (01) ==
LOC: OROUT 08:55
PROVIDERS: ATTEND Surgery
PROC: 05SC0ZZ Reposition Left Basilic Vein, Open Approach (ICD-10-PCS; principal; 2017-01-13 11:30)
DX: N18.6 End stage renal disease (principal); E11.22 Type 2 diabetes mellitus with diabetic chronic kidney disease; I12.0 Hypertensive chronic kidney disease with stage 5 chronic kidney disease or end stage renal disease; Z99.2 Dependence on renal dialysis; D50.9 Iron deficiency anemia, unspecified; E21.3 Hyperparathyroidism, unspecified; M19.90 Unspecified osteoarthritis, unspecified site; Z79.899 Other long term (current) drug therapy; Z87.891 Personal history of nicotine dependence; Z79.4 Long term (current) use of insulin
CPT/HCPCS: 36819; 93005; 36415 ×2; 82947; 84132; 85027; 80048; 71020; 93010; J2250; J3490 ×5; J0690; J1644; A9270; J2704; 1844; J3010

== ENCOUNTER 2017-02-10 12:39 | Day surgery (SDC) | payer MEDICARE, MEDICAID ==
[2017-02-07 11:38] LABS: ABSOLUTE BASOPHILS # (AUTO) 0.1 10^3/uL (0.0-0.2); ABSOLUTE EOSINOPHILS # (AUTO) 0.2 10^3/uL (0.0-0.6); ABSOLUTE MONOCYTES (AUTO) 0.4 10^3/uL (0.1-1.4); BASOPHILS % (AUTO) 1.2 % (0-2); EOSINOPHILS % (AUTO) 3.8 % (0-6); HEMATOCRIT 32.1 % (36.0-47.0); HEMOGLOBIN 10.8 g/dL (12.0-15.5); HGB HCT DIFFERENCE 0.3; LYMPHOCYTES % (AUTO) 21.8 % (13-45); MEAN CORPUSCULAR HEMOGLOBIN 32.7 pg (27.0-33.4); MEAN CORPUSCULAR HGB CONC 33.8 g/dL (32.0-36.0); MEAN CORPUSCULAR VOLUME 97 fl (80-97); MONOCYTES % (AUTO) 8.4 % (3-13); RED BLOOD COUNT 3.31 10^6/uL (3.72-5.28); RED CELL DISTRIBUTION WIDTH 16.6 % (11.5-14.0); SEGMENTED NEUTROPHILS % (AUTO) 64.8 % (42-78); WHITE BLOOD COUNT 4.7 10^3/uL (4.0-10.5)
[2017-02-07 11:54] LABS: ANION GAP 11 (5-19); BLOOD UREA NITROGEN 25 mg/dL (7-20); CALCIUM 9.2 mg/dL (8.4-10.2); CARBON DIOXIDE 28 mmol/L (22-30); CHLORIDE 100 mmol/L (98-107); CREATININE RESULT 2.72 mg/dL (0.52-1.25); GLUCOSE 264 mg/dL (75-110); POTASSIUM 4.1 mmol/L (3.6-5.0); SODIUM 139.2 mmol/L (137-145)
[~2017-02-10 12:39] MED LIST changes: -CEFAZOLIN 1 GM/D5W RTU 1 GM/50 ML RTUPB IV PRN; +GLYCOPYRROLATE INJ 0.4 MG/2 ML VIAL ONE; -HEPARIN SOD (PORCINE) 1,000 UNIT/ML 10 ML VIAL ONE; +LIDOCAINE 2% INJ-PF (20 MG/ML) 10 ML AMPUL ONE; +METOCLOPRAMIDE HCL INJ/PF 10 MG/2 ML SDV ONE; +ONDANSETRON HCL INJ/PF 4 MG/2 ML SDV ONE
[2017-02-10] MEDS ORDERED: LIDOCAINE 1% INJ-PF (10 MG/ML) 30 ML SDV ONE (13:41)
[2017-02-10] MEDS ORDERED: BUPIVACAINE HCL 0.25 % INJ/PF (2.5 MG/1 ML) 30 ML VIAL ONE ×2 (13:42→14:15)
[2017-02-10] MEDS ORDERED: HEPARIN SOD (PORCINE) 1,000 UNIT/ML 10 ML VIAL ONE (13:42)
[2017-02-10] MEDS ORDERED: LIDOCAINE 0.5% INJ-PF (5 MG/ML) 50 ML SDV ONE ×2 (13:42→14:15)
[2017-02-10] MEDS ORDERED: BACITRACIN INJ 50,000 UNIT VIAL ONE (13:42)
[2017-02-10 13:47] LABS: POTASSIUM 4.6 mmol/L (3.6-5.0)
[2017-02-10] MEDS ORDERED: PROPOFOL INJ 200 MG/20 ML VIAL IV ONE (14:17)
[2017-02-10] MEDS ORDERED: ACETAMINOPHEN 100 ML IV ONE (14:17)
[2017-02-10] MEDS ORDERED: FENTANYL CITRATE INJ/PF 100 MCG/2 ML AMPUL ONE (14:17)
[2017-02-10] MEDS ORDERED: MIDAZOLAM 2 MG/2 ML INJ ONE (14:17)
[2017-02-10] MEDS ORDERED: PROMETHAZINE HCL INJ 25 MG/1 ML VIAL IV PRN ×2 (15:31)
[2017-02-10] MEDS ORDERED: MEPERIDINE HCL/PF INJ 25 MG/1 ML DISP.SYRIN IV PRN (15:31)
[2017-02-10] MEDS ORDERED: DIPHENHYDRAMINE HCL 50 MG/ML VIAL IV PRN (15:31)
[2017-02-10] MEDS ORDERED: MORPHINE SULFATE 10 MG/ML INJ IV PRN (15:31)
[2017-02-10] MEDS ORDERED: FENTANYL CITRATE INJ/PF 100 MCG/2 ML AMPUL IV PRN ×3 (15:31)
[2017-02-10] MEDS ORDERED: OXYCODONE-ACETAMINOPHEN 5-325 MG TABLET PO PRN ×2 (15:31)
[2017-02-10] MEDS ORDERED: CEFAZOLIN 1 GM/D5W RTU 1 GM/50 ML RTUPB IV PRN (15:48)
[2017-02-10] MEDS ORDERED: BUPIVACAINE HCL 0.25 % INJ/PF (2.5 MG/1 ML) 30 ML VIAL INJ ONE (15:49)
[2017-02-10] MEDS ORDERED: LIDOCAINE 1% INJ-PF (10 MG/ML) 30 ML SDV INJ ONE (15:50)
[2017-02-10] MEDS ORDERED: LIDOCAINE 0.5%/EPINEPHRINE INJ 50 ML VIAL INJ ONE (15:52)
[2017-02-10] MEDS ORDERED: HEPARIN SOD (PORCINE) 1,000 UNIT/ML 1 ML VIAL INJ ONE (15:56)
[2017-02-10] MEDS ORDERED: BACITRACIN INJ 50,000 UNIT VIAL IR ONE (15:57)
--- NOTE | 2017-02-10 16:45 | PDOC DISCHARGE SUMMARY ---
Discharge Summary (SDC) - Discharge Final Diagnosis: #1 left arm transposed basilic vein fistula. 2. End-stage renal disease on hemodialysis. 3. Diabetes mellitus type 2. 4. Hypertension Date of Surgery: 02/10/17 Discharge Date: 02/10/17 Condition: Fair Treatment or Instructions: Discharge home [after recovery per ASU criteria]. Diet , [renal],as tolerated, when fully awake advance as tolerated. Activities within moderation encouraged. Medications per medication reconciliation sheet. Follow up in my office by appointment in about [1 week]. Call for appointment. Leave wounds [covered], [keep clean and dry, until office visit in 1 week]. Rene-May drain as needed. Pain patient in use. Hold of on school/work [until evaluation in office]. May shower [in 48 hrs], [try to keep operated area as dry as possible]. Prescriptions: Oxycodone HCl/Acetaminophen [Percocet 5-325 mg Tablet] 1 tab PO ASDIR PRN #15 tab PRN Reason: Discharge Diet: Other (Comments) - , Diabetic Respiratory Treatments at Home: Deep Breathing/Coughing Discharge Activity: Activity As Tolerated Report the Following to Your Physician Immediately: Unusual Bleeding
--- NOTE | 2017-02-10 16:48 | Operative Report ---
Operative Report DATE OF SURGERY: 02/10/17 PREOPERATIVE DIAGNOSIS: #1 left arm transposed basilic vein fistula. 2. End- stage renal disease on hemodialysis. 3. Diabetes mellitus type 2. 4. Hypertension POSTOPERATIVE DIAGNOSIS: #1 left arm transposed basilic vein fistula. 2. End- stage renal disease on hemodialysis. The second stage left arm basilic transposition. 3. Diabetes mellitus type 2. 4. Hypertension OPERATION: Second stage left arm basilic vein transposition AV fistula. SURGEON: STEVEN YOUNG TANK CARPENTER: None ANESTHESIA: LMAC TISSUE REMOVED OR ALTERED: Not applicable. COMPLICATIONS: None ESTIMATED BLOOD LOSS: 50 mL. INTRAOPERATIVE FINDINGS: Of a robustly developed basilic vein fistula easily 6 mm in diameter. Transposed with length of 15 cm potentially available for hemodialysis. PROCEDURE: Operative Report PROCEDURE: After reviewing the procedure with the patient, and her family, she was taken to the operating room. The patient was sedated and the left upper extremity prepared with chlorhexidine and draped out with sterile linen. After the "" universal timeout", in which it was verified that the patient [received IV antibiotics] the procedure commenced. The sterilely sheathed ultrasound probe was used to evaluate the size and topographic location of the existing veins. The fistula function was noted. This was transcribed topographical using a marking pen. Local anesthesia was infiltrated and a longitudinal incision started just above the elbow and dissection proceeded down to the vein. Sequential infiltration of local anesthesia, incision and dissection of the vein proceeded up to the axillary fold. The basilic vein was now dissected away from its branches which were either clipped and/or ligated and divided. In this way the basilic vein was freed up for its entire visible length. Its length was now measured with a dry umbilical tape which was used to transpose a tunnel onto the skin anteriorly and laterally. With this marked in ink, local anesthesia was infiltrated in the skin and subcutaneous tissue of the tunnel. A [place] tunneler was now inserted and the tunnel exposed. Serial sutures of 3-0 PDS were placed at about 3 cm intervals and placed on clamps. These gave lateral traction. Cautery was now used to incise the subcutaneous tissues so as to reveal the [place] tunneler. The length of the basilic vein was now shifted into the tunnel and sustained there by interrupted sutures of 3-0 PDS placed from the subcutaneous tissue on one side of the tunnel to the other. Once this was done the lateral flap was now approximated to the medial flap using interrupted sutures of 3-0 PDS. The fistula was interrogated from time to time to make sure that it was patent. A 15 [place] Enio drain was placed deep in the wound and exiting inferiorly the it was sutured using 2-0 Prolene. The skin was closed with a continuous subcutaneous suture of 4-0 Monocryl. Steri-Strips were applied over benzoin and then a Kerlix wrap. The procedure was concluded. Copies dictated operative report to Dr. Steven Walton MD thank you. DICTATING PHYSICIAN: STEVEN WALTON M.D
[2017-02-10 18:56] VITALS: BP 125/58
== END 2017-02-10 18:50 | disposition home or self-care (01) ==
LOC: OROUT 12:39
PROVIDERS: ATTEND Surgery
PROC: 05SC0ZZ Reposition Left Basilic Vein, Open Approach (ICD-10-PCS; principal; 2017-02-10 14:45)
DX: I12.0 Hypertensive chronic kidney disease with stage 5 chronic kidney disease or end stage renal disease (principal); E11.22 Type 2 diabetes mellitus with diabetic chronic kidney disease; N18.6 End stage renal disease; Z99.2 Dependence on renal dialysis; E21.3 Hyperparathyroidism, unspecified; D50.9 Iron deficiency anemia, unspecified; R01.1 Cardiac murmur, unspecified; M19.90 Unspecified osteoarthritis, unspecified site; Z79.899 Other long term (current) drug therapy; Z79.4 Long term (current) use of insulin
CPT/HCPCS: 36415 ×2; 82962; 82947; 84132; 85025; 80048; 36819; J2250; J3490 ×4; J0690; J3010; J1644; J2765; J2405; J2704; J0131; 1770; 1844

== ENCOUNTER 2017-04-26 12:56 | Emergency (ER) | payer MEDICARE, MEDICAID ==
[2017-04-26 13:03] VITALS: BP 146/69
--- NOTE | 2017-04-26 13:53 | ER Document Report ---
ED Wound - General Chief Complaint: Wound Recheck Stated Complaint: ARM PAIN Time Seen by Provider: 04/26/17 13:30 Mode of Arrival: Ambulatory Information source: Patient Notes: 76-year-old female presents to ED presents to ED for wound care to her left upper arm. She states that she was seen at the wound clinic on Friday and they removed the wound VAC. States that last night she had some extra drainage coming out. She states she thought she had extra her pain also there is a little bit of drainage on the gauze on the wound. States she went to the dialysis center today and they told her she needed to come to the emergency room and have her dressing changed. He is scheduled to go back to the wound clinic on Friday. TRAVEL OUTSIDE OF THE [place] IN LAST 30 DAYS: No - HPI Patient complains to provider of: Other - Wound care Occurred: Other - This is a long-term wound that she has been having treated at the wound care center they removed the wound VAC on Friday and she is having a little more drainage today. Onset/Duration: Persistent Quality of pain: Achy Severity: Mild Pain Level: 2 Skin Color: Normal. No: Erythema Sensations intact: Yes Associated Symptoms: Drainage - Small amount of hernandez drainage from the wound no redness no inflammation no signs or symptoms of infection no swelling. denies: Swelling - Related Data Allergies/Adverse Reactions: No Known Allergies Allergy (Verified 04/26/17 13:03) Past Medical History - General Information source: Patient - Social History Smoking Status: Former Smoker Cigarette use (# per day): No Chew tobacco use (# tins/day): No Smoking Education Provided: No Frequency of alcohol use: None Drug Abuse: None Lives with: Alone Family History: DM, Hypertension, Malignancy Patient has suicidal ideation: No Patient has homicidal ideation: No - Past Medical History Cardiac Medical History: Reports: Hx Hypercholesterolemia, Hx Hypertension Pulmonary Medical History: Reports: None EENT Medical History: Reports: None Neurological Medical History: Reports: None Endocrine Medical History: Reports: Hx Diabetes Mellitus Type 2 Renal/ Medical History: Reports: Hx End Stage Renal Disease - stage 5 patient is on hemodialysis Malignancy Medical History: Reports: None GI Medical History: Reports: Hx Gastroesophageal Reflux Disease, Hx Ulcer Musculoskeltal Medical History: Reports Hx Arthritis Skin Medical History: Reports Hx Cellulitis Psychiatric Medical History: Reports: None Traumatic Medical History: Reports: None Infectious Medical History: Reports: None Past Surgical History: Reports: Hx Tubal Ligation, Hx Vascular Surgery - Dialysis fistula, Other - Bilateral blepharoplasty upper eyelid leads, ureteral stent placement - Immunizations Hx Diphtheria, Pertussis, Tetanus Vaccination: No Hx Pneumococcal Vaccination: 09/20/14 Review of Systems - Review of Systems Constitutional: No symptoms reported EENT: No symptoms reported Cardiovascular: No symptoms reported Respiratory: No symptoms reported Gastrointestinal: No symptoms reported Genitourinary: No symptoms reported Female Genitourinary: No symptoms reported Musculoskeletal: No symptoms reported Skin: Other - Drainage from wound to the left upper arm. She has been being treated by wound care clinic. Her wound VAC was removed on Friday and she is scheduled to follow-up with wound care center on Friday. Dialysis center asked her to come to the emergency room to have her dressing changed. Hematologic/Lymphatic: No symptoms reported Neurological/Psychological: No symptoms reported -: Yes All other systems reviewed and negative Physical Exam - Vital signs Vitals: Temp Pulse Resp BP Pulse Ox 98.7 F 76 16 146/69 H 98 04/26/17 12:59 04/26/17 12:59 04/26/17 12:59 04/26/17 12:59 04/26/17 12:59 Interpretation: Normal - General General appearance: Appears well, Alert - HEENT Head: Normocephalic, Atraumatic Eyes: Normal Pupils: PERRL - Respiratory Respiratory status: No respiratory distress Chest status: Nontender Breath sounds: Normal Chest palpation: Normal - Cardiovascular Rhythm: Regular Heart sounds: Normal auscultation Murmur: No - Abdominal Inspection: Normal Distension: No distension Bowel sounds: Normal Tenderness: Nontender Organomegaly: No organomegaly - Back Back: Normal, Nontender - Extremities General upper extremity: Normal inspection, Normal color, Normal ROM, Normal temperature General lower extremity: Normal inspection, Nontender, Normal color, Normal ROM , Normal temperature, Normal weight bearing. No: Kimberly's sign Arm: Other - Open healing wound with hernandez colored drainage no redness no inflammation no signs of increased infection. - Neurological Neuro grossly intact: Yes Cognition: Normal Orientation: AAOx4 [place] Coma Scale Eye Opening: Spontaneous [place] Coma Scale Verbal: Oriented [place] Coma Scale Motor: Obeys Commands [place] Coma Scale Total: 15 Speech: Normal Motor strength normal: LUE, RUE, LLE, RLE Sensory: Normal - Psychological Associated symptoms: Normal affect, Normal mood - Skin Skin Temperature: Warm Skin Moisture: Dry Skin Color: Normal Course - Re-evaluation Re-evalutation: 04/26/17 13:56 Wound cleaned with surgical scrub irrigated well with saline new dressing applied. Patient instructed to follow-up with wound care on Friday via telephone to schedule appointment for Friday for wound change as she states that the wound care clinic told her not to change the dressing. - Vital Signs Vital signs: Temp Pulse Resp BP Pulse Ox 98.7 F 76 16 146/69 H 98 04/26/17 12:59 04/26/17 12:59 04/26/17 12:59 04/26/17 12:59 04/26/17 12:59 Discharge - Discharge Clinical Impression: Encounter for wound care Condition: Stable Disposition: HOME, SELF-CARE Additional Instructions: The wound to your left upper arm was cleaned with surgical scrub irrigated with saline and a new dressing applied. Please call your wound care doctor on Friday to schedule follow-up or to ensure that it is okay for you to change the dressing herself at home. Please take your Tylenol for the discomfort. FOLLOW-UP CARE: If you have been referred to a physician for follow-up care, call the physician s office for an appointment as you were instructed or within the next two days. If you experience worsening or a significant change in your symptoms, notify the physician immediately or return to the Emergency Department at any time for re-evaluation. Referrals: STEVEN ROACH MD [ACTIVE STAFF] - Follow up as needed
== END 2017-04-26 14:07 | disposition home or self-care (01) ==
LOC: ER 12:56
DX: S41.102A Unspecified open wound of left upper arm, initial encounter (principal); M79.622 Pain in left upper arm
CPT/HCPCS: 99282

== ENCOUNTER 2019-07-03 20:19 | Emergency (ER) | payer MEDICARE, MEDICAID ==
[2019-07-03] MEDS ORDERED: ASPIRIN 81 MG TABLET, CHEWABLE PO ONE (20:45)
[2019-07-03] MEDS ORDERED: IPRATROPIUM/ALBUTEROL 0.5-2.5 MG/3 ML AMPUL NEB ONE (20:45)
--- NOTE | 2019-07-03 20:46 | ER Document Report ---
ED Medical Screen (RME) - General Chief Complaint: Cold Symptoms Stated Complaint: FLU LIKE SYMPTOMS Time Seen by Provider: 07/03/19 20:42 Primary Care Provider: SHAINA BELTRE MD [Primary Care Provider] - Follow up as needed Mode of Arrival: Ambulatory Information source: Patient Notes: Patient presents complaining of cough this been productive for the past 2 weeks. Patient reports chest pain for the past week with shortness of breath. No fever. Patient does have a history of hypertension, diabetes and dialysis on Friday. Patient did dialyze today. I have greeted and performed a rapid initial assessment of this patient. A comprehensive ED assessment and evaluation of the patient, analysis of test results and completion of the medical decision making process will be conducted by additional ED providers. TRAVEL OUTSIDE OF THE [place] IN LAST 30 DAYS: No - Related Data Allergies/Adverse Reactions: No Known Allergies Allergy (Verified 04/26/17 13:03) Past Medical History - Past Medical History Cardiac Medical History: Reports: Hx Hypercholesterolemia, Hx Hypertension Denies: Hx Heart Attack Pulmonary Medical History: Denies: Hx Asthma, Hx Bronchitis, Hx COPD, Hx Pneumonia Neurological Medical History: Denies: Hx Seizures Endocrine Medical History: Reports: Hx Diabetes Mellitus Type 2 Renal/ Medical History: Reports: 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 Denies: Hx Peritoneal Dialysis GI Medical History: Reports: Hx Gastroesophageal Reflux Disease, Hx Ulcer Musculoskeltal Medical History: Reports Hx Arthritis Skin Medical History: Reports Hx Cellulitis Past Surgical History: Reports: Hx Tubal Ligation, Hx Vascular Surgery - Dialysis fistula, Other - Bilateral blepharoplasty upper eyelid leads, ureteral stent placement - Immunizations Hx Diphtheria, Pertussis, Tetanus Vaccination: No Physical Exam - Vital signs Vitals: Temp Pulse Resp BP Pulse Ox 98.4 F 69 22 H 155/47 H 97 07/03/19 20:32 07/03/19 20:32 07/03/19 20:32 07/03/19 20:32 07/03/19 20:32 - Respiratory Respiratory status: No respiratory distress Chest status: Pain with cough Breath sounds: Nonproductive cough, Wheezing - Faint wheezing noted with cough only Course - Vital Signs Vital signs: Temp Pulse Resp BP Pulse Ox 98.4 F 69 22 H 155/47 H 97 07/03/19 20:32 07/03/19 20:32 07/03/19 20:32 07/03/19 20:32 07/03/19 20:32 Doctor's Discharge - Discharge Referrals: SHAINA BELTRE MD [Primary Care Provider] - Follow up as needed
[2019-07-03 21:25] LABS: ABSOLUTE BASOPHILS # (AUTO) 0.1 10^3/uL (0.0-0.2); ABSOLUTE EOSINOPHILS # (AUTO) 0.2 10^3/uL (0.0-0.6); ABSOLUTE LYMPHOCYTES (AUTO) 1.5 10^3/uL (0.5-4.7); ABSOLUTE MONOCYTES (AUTO) 0.6 10^3/uL (0.1-1.4); ABSOLUTE NEUT (AUTO) 4.4 10^3/uL (1.7-8.2); EOSINOPHILS % (AUTO) 2.8 % (0-6); HEMATOCRIT 30.5 % (36.0-47.0); HEMOGLOBIN 10.3 g/dL (12.0-15.5); LYMPHOCYTES % (AUTO) 21.9 % (13-45); MEAN CORPUSCULAR HEMOGLOBIN 31.2 pg (27.0-33.4); MEAN CORPUSCULAR HGB CONC 33.9 g/dL (32.0-36.0); MEAN CORPUSCULAR VOLUME 92 fl (80-97); MONOCYTES % (AUTO) 9.2 % (3-13); PLATELET COUNT 197 10^3/uL (150-450); RED BLOOD COUNT 3.31 10^6/uL (3.72-5.28); SEGMENTED NEUTROPHILS % (AUTO) 65.1 % (42-78); TOTAL CELLS COUNTED % (AUTO) 100 %; WHITE BLOOD COUNT 6.8 10^3/uL (4.0-10.5)
--- NOTE | 2019-07-03 21:28 | EKG REPORT ---
SEVERITY:- OTHERWISE NORMAL ECG - SINUS RHYTHM ABERRANT COMPLEX : Confirmed by: Tiffanie Plummer MD 03-Jul-2019 21:27:22
[2019-07-03 21:41] LABS: ALBUMIN 4.4 g/dL (3.5-5.0); ALKALINE PHOSPHATASE 102 U/L (38-126); ANION GAP 11 (5-19); ASPARTATE AMINO TRANSFERASE 22 U/L (14-36); BILIRUBIN,DIRECT 0.2 mg/dL (0.0-0.4); BILIRUBIN,TOTAL 0.8 mg/dL (0.2-1.3); BLOOD UREA NITROGEN 18 mg/dL (7-20); CALCIUM 8.8 mg/dL (8.4-10.2); CARBON DIOXIDE 29 mmol/L (22-30); CHLORIDE 95 mmol/L (98-107); GLUCOSE 154 mg/dL (75-110); POTASSIUM 4.4 mmol/L (3.6-5.0); TOTAL PROTEIN 7.7 g/dL (6.3-8.2)
--- NOTE | 2019-07-03 21:50 | RADIOLOGY REPORT (SQ) ---
XR CHEST 2 VIEWS EXAM DATE: 07/03/2019 8:45 PM CDT HISTORY: cough, cp. COMPARISON: 10/09/2014 FINDINGS: The heart size is within normal limits. No consolidation, pleural effusion, or pneumothorax is seen. No acute bony findings. IMPRESSION: No acute cardiopulmonary disease.
[2019-07-03 21:53] LABS: NT PRO BNP 5050 pg/mL (<450); TROPONIN I < 0.012 ng/mL
--- NOTE | 2019-07-03 22:12 | ER Document Report ---
ED General - General Chief Complaint: Cold Symptoms Stated Complaint: FLU LIKE SYMPTOMS Time Seen by Provider: 07/03/19 20:42 Primary Care Provider: SHAINA BELTRE MD [Primary Care Provider] - Follow up as needed Mode of Arrival: Ambulatory TRAVEL OUTSIDE OF THE [place] IN LAST 30 DAYS: No - HPI Notes: Patient is a 78-year-old female that presents to the emergency department for chief complaint of cough. Patient reports productive cough of the last 2 weeks. She states she had one fever about for 5 days ago which had since resolved. Patient denies taking any dnie-qwn-vvhmuom medicines for her symptoms. She states it feels like her chest is tight and full. She does receive dialysis and has not missed any treatments, she had a full treatment today. She denies any chest pain. Patient does have family members who are also sick currently. She has not received a flu vaccine this year. Past Medical History: End-stage renal disease on dialysis Past Surgical History: Reviewed in chart Social History: Quit tobacco 50 years ago. Denies alcohol. Lives independently Family History: Reviewed and noncontributory for presenting illness Allergies: Reviewed, see documented allergy list. REVIEW OF SYSTEMS: CONSTITUTIONAL : fever No chills No diaphoresis No recent illness EENT: No vision changes congestion No sore throat CARDIOVASCULAR: No chest pain No palpitations RESPIRATORY: No shortness of breath cough No difficulty breathing GASTROINTESTINAL: No abdominal pain No nausea No vomiting No diarrhea GENITOURINARY: No dysuria No hematuria No difficulty urinating MUSCULOSKELETAL: No back pain No leg pain No arm pain SKIN: No rashes No lesions LYMPHATIC: No swollen, enlarged glands. NEUROLOGICAL: No lightheadedness No headache No weakness No paresthesias PSYCHIATRIC: No anxiety No depression PHYSICAL EXAMINATION: Vital signs reviewed, nursing noted reviewed. GENERAL: Well-appearing, well-nourished and in no acute distress. HEAD: Atraumatic, normocephalic. EYES: Eyes appear normal, extraocular movements intact, sclera anicteric, conjunctiva are normal. ENT: nares patent, oropharynx clear without exudates. Moist mucous membranes. NECK: Normal range of motion, supple without lymphadenopathy LUNGS: Breath sounds clear to auscultation bilaterally and equal. No wheezes rales or rhonchi. HEART: Regular rate and rhythm without murmurs ABDOMEN: Soft, nontender, normoactive bowel sounds. No rebound, guarding, or rigidity. No masses appreciated. EXTREMITIES: Nontender, good range of motion, no pitting or edema. NEUROLOGICAL: No focal neurological deficits. Moves all extremities spontaneously Motor and sensory grossly intact on exam. PSYCH: Normal mood, normal affect. SKIN: Warm, Dry, normal turgor, no rashes or lesions noted on exposed skin - Related Data Allergies/Adverse Reactions: No Known Allergies Allergy (Verified 04/26/17 13:03) Past Medical History - General Information source: Patient - Social History Smoking Status: Unknown if Ever Smoked Family History: DM, Hypertension, Malignancy Patient has suicidal ideation: No Patient has homicidal ideation: No - Past Medical History Cardiac Medical History: Reports: Hx Hypercholesterolemia, Hx Hypertension Denies: Hx Heart Attack Pulmonary Medical History: Denies: Hx Asthma, Hx Bronchitis, Hx COPD, Hx Pneumonia Neurological Medical History: Denies: Hx Seizures Endocrine Medical History: Reports: Hx Diabetes Mellitus Type 2 Renal/ Medical History: Reports: 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 Denies: Hx Peritoneal Dialysis GI Medical History: Reports: Hx Gastroesophageal Reflux Disease, Hx Ulcer Musculoskeletal Medical History: Reports Hx Arthritis Skin Medical History: Reports Hx Cellulitis Past Surgical History: Reports: Hx Tubal Ligation, Hx Vascular Surgery - Dialysis fistula, Other - Bilateral blepharoplasty upper eyelid leads, ureteral stent placement - Immunizations Hx Diphtheria, Pertussis, Tetanus Vaccination: No Hx Pneumococcal Vaccination: 09/20/14 Physical Exam - Vital signs Vitals: Temp Pulse Resp BP Pulse Ox 98.4 F 69 22 H 155/47 H 97 07/03/19 20:32 07/03/19 20:32 07/03/19 20:32 07/03/19 20:32 07/03/19 20:32 Course - Re-evaluation Re-evalutation: 07/03/19 22:10 Vitals reviewed. Nurse notes reviewed. Patient is well-appearing and nontoxic. Her lung sounds are clear to auscultation. She is oxygenating well on room air. Patient is afebrile and has not had any antipyretics today. She did complain of chest tightness which is secondary to her cough and states her lungs feel full. She denies any chest pain to suggest ACS. Her EKG shows apparent complex but no STEMI. Patient's chest x-ray shows no underlying pneumonia. Her lab work shows her chronic renal failure without severe electrolyte abnormalities. She has no leukocytosis. She is at her baseline anemia. At this point patient is stable for discharge home. Symptoms likely viral. I encouraged her to follow with her primary care doctor on Friday. She will re turn for new or worsening symptoms. Laboratory 07/03/19 07/03/19 07/03/19 21:05 21:05 21:05 WBC 6.8 RBC 3.31 L Hgb 10.3 L Hct 30.5 L MCV 92 MCH 31.2 MCHC 33.9 RDW 14.0 Plt Count 197 Lymph % (Auto) 21.9 [place] % (Auto) 9.2 Eos % (Auto) 2.8 Baso % (Auto) 1.0 Absolute Neuts (auto) 4.4 Absolute Lymphs (auto) 1.5 Absolute Monos (auto) 0.6 Absolute Eos (auto) 0.2 Absolute Basos (auto) 0.1 Seg Neutrophils % 65.1 Sodium 135.3 L Potassium 4.4 Chloride 95 L Carbon Dioxide 29 Anion Gap 11 BUN 18 Creatinine 2.58 H Est GFR ( Amer) 22 L Est GFR (MDRD) Non-Af 18 L Glucose 154 H Calcium 8.8 Total Bilirubin 0.8 Direct Bilirubin 0.2 Neonat Total Bilirubin Not Reportable Neonat Direct Bilirubin Not Reportable Neonat Indirect Bili Not Reportable AST 22 ALT 13 Alkaline Phosphatase 102 Troponin I < 0.012 NT-Pro-B Natriuret Pep 5050 H Total Protein 7.7 Albumin 4.4 Chest X-Ray 07/03/19 20:45 IMPRESSION: No acute cardiopulmonary disease. - Vital Signs Vital signs: Temp Pulse Resp BP Pulse Ox 98.4 F 69 21 H 155/47 H 96 07/03/19 20:32 07/03/19 20:32 07/03/19 21:00 07/03/19 20:32 07/03/19 21:00 - Laboratory Result Diagrams: 07/03/19 21:05 07/03/19 21:05 Laboratory results interpreted by me: 07/03/19 07/03/19 07/03/19 21:05 21:05 21:05 RBC 3.31 L Hgb 10.3 L Hct 30.5 L Sodium 135.3 L Chloride 95 L Creatinine 2.58 H Est GFR ( Amer) 22 L Est GFR (MDRD) Non-Af 18 L Glucose 154 H NT-Pro-B Natriuret Pep 5050 H - EKG Interpretation by Me Additional EKG results interpreted by me: 07/03/19 22:13 Interpreted by myself 10/09/2001: Normal sinus rhythm, rate 70, a variant complex, no STEMI Discharge - Discharge Clinical Impression: Bronchitis Condition: Stable Disposition: HOME, SELF-CARE Instructions: Bronchitis ([facility]) Additional Instructions: Please return to the emergency department if you have any worsening, or concern of your symptoms. Please return to the emergency department if you develop chest pain, difficulty breathing, severe abdominal pain, or ongoing vomiting. Please follow-up with your primary care physician in 2-3 days and any other recommended physicians. If prescribed, take all medications as directed. If you have any questions or concerns do not hesitate to return the emergency department for evaluation. [] Prescriptions: Benzonatate [Tessalon Perles 100 mg Capsule] 100 mg PO Q8HP PRN #20 capsule PRN Reason: Referrals: SHAINA BELTRE MD [Primary Care Provider] - 07/05/19
[2019-07-03 22:16] VITALS: BP 159/79
== END 2019-07-03 22:19 | disposition home or self-care (01) ==
LOC: ER 20:19
DX: J40 Bronchitis, not specified as acute or chronic (principal); R05 Cough; R50.9 Fever, unspecified; I12.0 Hypertensive chronic kidney disease with stage 5 chronic kidney disease or end stage renal disease; E11.22 Type 2 diabetes mellitus with diabetic chronic kidney disease; N18.6 End stage renal disease; Z99.2 Dependence on renal dialysis
CPT/HCPCS: 93005; 94640; 99284; 36415; 85025; 80053; 84484; 83880; 71046; 93010; A9270 ×2; J7620

== ENCOUNTER 2019-09-05 10:18 | Emergency (ER) | payer MEDICARE, MEDICAID ==
--- NOTE | 2019-09-05 10:43 | ER Document Report ---
ED Medical Screen (RME) - General Chief Complaint: Shortness Of Breath Stated Complaint: SHORTNESS OF BREATH/NUMBNESS LEFT/RIGHT ARM Time Seen by Provider: 09/05/19 10:37 Primary Care Provider: SHAINA BELTRE MD [Primary Care Provider] - Follow up as needed Mode of Arrival: Wheelchair Information source: Patient Notes: This 78-year-old patient on dialysis presents to the emergency department with complaints of right hand numbness and shortness of breath. Patient reports symptoms started yesterday. Left side patient's lip is drooping with slight flattened nasolabial fold. Patient denies history of stroke. No other complaints such as fever vomiting diarrhea. I have greeted and performed a rapid initial assessment of this patient. A comprehensive ED assessment and evaluation of the patient, analysis of test results and completion of the medical decision making process will be conducted by additional ED providers. TRAVEL OUTSIDE OF THE [place] IN LAST 30 DAYS: No - Related Data Allergies/Adverse Reactions: No Known Allergies Allergy (Verified 04/26/17 13:03) Past Medical History - Past Medical History Cardiac Medical History: Reports: Hx Hypercholesterolemia, Hx Hypertension Denies: Hx Heart Attack Pulmonary Medical History: Denies: Hx Asthma, Hx Bronchitis, Hx COPD, Hx Pneumonia Neurological Medical History: Denies: Hx Seizures Endocrine Medical History: Reports: Hx Diabetes Mellitus Type 2 Renal/ Medical History: Reports: 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 Denies: Hx Peritoneal Dialysis GI Medical History: Reports: Hx Gastroesophageal Reflux Disease, Hx Ulcer Musculoskeltal Medical History: Reports Hx Arthritis Skin Medical History: Reports Hx Cellulitis Past Surgical History: Reports: Hx Tubal Ligation, Hx Vascular Surgery - Dialysis fistula, Other - Bilateral blepharoplasty upper eyelid leads, ureteral stent placement - Immunizations Hx Diphtheria, Pertussis, Tetanus Vaccination: No Doctor's Discharge - Discharge Referrals: SHAINA BELTRE MD [Primary Care Provider] - Follow up as needed
--- NOTE | 2019-09-05 11:18 | RADIOLOGY REPORT (SQ) ---
EXAM DESCRIPTION: CT HEAD WITHOUT COMPLETED DATE/TIME: 09/05/2019 11:05 am REASON FOR STUDY: right hand numbness, facial drooping COMPARISON: None. TECHNIQUE: Axial images acquired through the brain without intravenous contrast. Images reviewed wi th bone, brain and subdural windows. Additional sagittal and coronal reconstructions were generated. Images stored on PACS. All CT scanners at this facility use dose modulation, iterative reconstruction, and/or weight based d osing when appropriate to reduce radiation dose to as low as reasonably achievable (ALARA). [facility]: Dose Right [facility]: CareDose [facility]: Dose Right [facility]: Teradose 4D [facility]: Snaapiq RADIATION DOSE: CT Rad equipment meets quality standard of care and radiation dose reduction techniq ues were employed. CTDIvol: 53.2 mGy. DLP: 991 mGy-cm. mGy. LIMITATIONS: None. FINDINGS: VENTRICLES: Normal size and contour. CEREBRUM: No masses. No hemorrhage. No midline shift. No evidence for acute infarction. Normal gra y/white matter differentiation. No areas of low density in the white matter. CEREBELLUM: No masses. No hemorrhage. No alteration of density. No evidence for acute infarction. EXTRAAXIAL SPACES: No fluid collections. No masses. ORBITS AND GLOBE: No intra- or extraconal masses. Normal contour of globe without masses. CALVARIUM: No fracture. PARANASAL SINUSES: No fluid or mucosal thickening. SOFT TISSUES: No mass or hematoma. OTHER: No other significant finding. IMPRESSION: NORMAL BRAIN CT WITHOUT CONTRAST. EVIDENCE OF ACUTE STROKE: NO. COMMENT: Quality ID # [id number]: Final reports with documentation of one or more dose reduction techniques (e.g., Automated exposure control, adjustment of the mA and/or kV according to patient size, use of iterative reconstruction technique) TECHNICAL DOCUMENTATION: JOB ID: [id number] [employer]- All Rights Reserved Reading location - IP/workstation name: [email or web address]
--- NOTE | 2019-09-05 11:48 | RADIOLOGY REPORT (SQ) ---
EXAM DESCRIPTION: CHEST SINGLE VIEW COMPLETED DATE/TIME: 09/05/2019 11:13 am REASON FOR STUDY: right hand numbness, facial drooping COMPARISON: 07/05/2019 NUMBER OF VIEWS: One view. TECHNIQUE: Single frontal radiographic view of the chest acquired. LIMITATIONS: None. FINDINGS: LUNGS AND PLEURA: No opacities, masses or pneumothorax. No pleural effusion. MEDIASTINUM AND HILAR STRUCTURES: No masses. Contour normal. HEART AND VASCULAR STRUCTURES: Heart normal in size. Normal vasculature. BONES: No acute findings. HARDWARE: None in the chest. OTHER: No other significant finding. IMPRESSION: NO SIGNIFICANT RADIOGRAPHIC FINDING IN THE CHEST. TECHNICAL DOCUMENTATION: JOB ID: [id number] [email or web address]- All Rights Reserved Reading location - IP/workstation name: [email or web address]
--- NOTE | 2019-09-05 12:12 | ER Document Report ---
ED Respiratory Problem - General Chief Complaint: Shortness Of Breath Stated Complaint: SHORTNESS OF BREATH/NUMBNESS LEFT/RIGHT ARM Time Seen by Provider: 09/05/19 10:37 Primary Care Provider: SHAINA BELTRE MD [Primary Care Provider] - Follow up as needed Mode of Arrival: Wheelchair Notes: HPI: Patient is a 78-year-old female that presents today with what she states is some shortness of breath with a mild cough and some minimal nasal congestion starting yesterday. She denies any chest pain. She denies any fevers or vomiting. She denies any pain to the anterior posterior ribs. She states that she does have some mild bilateral lower extremity swelling which is been present for around 1 month. Patient states that she has some numbness and some weakness to her right hand but states that that is been going on intermittently for "a very long time". She states at least a year. She denies any increased numbness or weakness today compared to baseline. There was a concern from the triage provider that the patient had some left facial drooping to the left corner of her mouth. Patient denies any headache, blurry vision, or otherwise weakness or numbness compared to baseline. ROS: See HPI All other review of systems reviewed and otherwise negative Reviewed vital signs and nursing note as charted by RN. PHYSICAL EXAM: CONSTITUTIONAL: Alert and oriented and responds appropriately to questions. Well-appearing; well-nourished HEAD: Normocephalic; atraumatic EYES: PERRL; full extraocular range of motion ENT: Normal nose; no rhinorrhea; moist mucous membranes; pharynx without lesions noted NECK: Supple without meningismus; non-tender; no cervical lymphadenopathy, no masses CARD: Regular rate and rhythm; no murmurs; symmetric distal pulses RESP: Normal chest excursion without splinting or tachypnea; breath sounds clear and equal bilaterally without wheezing, rales, or rhonchi on my initial examination ABD/GI: Normal bowel sounds; non-distended; soft, non-tender BACK: The back appears normal and is non-tender to palpation EXT: Normal ROM in all joints; non-tender to palpation; no edema SKIN: No acute lesions noted NEURO: CN 2-12 intact; patient does appear to have minimal left corner of her mouth drooping at baseline. However when I asked her to smile her smile is equally elevated to bilateral corners. 5/5 bilateral upper and lower extremity strength with sensation intact to light touch. No appreciable weakness of the right hand with no drift appreciated. PSYCH: The patient's mood and manner are appropriate. Grooming and personal hyg iene are appropriate. TRAVEL OUTSIDE OF THE [place] IN LAST 30 DAYS: No - Related Data Allergies/Adverse Reactions: No Known Allergies Allergy (Verified 04/26/17 13:03) Past Medical History - General Information source: Patient - Social History Smoking Status: Former Smoker Frequency of alcohol use: None Drug Abuse: None Family History: DM, Hypertension, Malignancy Patient has suicidal ideation: No Patient has homicidal ideation: No - Past Medical History Cardiac Medical History: Reports: Hx Hypercholesterolemia, Hx Hypertension Denies: Hx Heart Attack Pulmonary Medical History: Denies: Hx Asthma, Hx Bronchitis, Hx COPD, Hx Pneumonia Neurological Medical History: Denies: Hx Seizures Endocrine Medical History: Reports: Hx Diabetes Mellitus Type 2 Renal/ Medical History: Reports: 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 Denies: Hx Peritoneal Dialysis GI Medical History: Reports: Hx Gastroesophageal Reflux Disease, Hx Ulcer Musculoskeletal Medical History: Reports Hx Arthritis Skin Medical History: Reports Hx Cellulitis Past Surgical History: Reports: Hx Tubal Ligation, Hx Vascular Surgery - Dialysis fistula, Other - Bilateral blepharoplasty upper eyelid leads, ureteral stent placement - Immunizations Hx Diphtheria, Pertussis, Tetanus Vaccination: No Hx Pneumococcal Vaccination: 09/20/14 Physical Exam - Vital signs Vitals: Pulse Resp BP Pulse Ox 65 20 153/51 H 98 09/05/19 10:41 09/05/19 10:41 09/05/19 10:41 09/05/19 10:41 Course - Re-evaluation Re-evalutation: 09/05/19 12:10 Given the history and physical examination, we will obtain basic labs, x-ray of the chest, cardiac panel, CT scan of the head, and reassess. Patient currently has no obvious weakness or numbness on my examination. Vital signs as recorded. Patient has had absolutely no chest pain. Patient is a dialysis patient and completed dialysis yesterday. 09/05/19 13:22 No change in exam. Good room air oxygenation. Troponin and labs as recorded. Patient has an elevated baseline creatinine. Potassium unremarkable. X-ray of the chest shows no infiltrate or signs of heart failure. CT scan of the head shows no obvious stroke or intracranial hemorrhage. 09/05/19 13:28 EKG shows a heart of 67, normal sinus rhythm, left axis deviation, no ST elevation or depression. Old EKG shows no appreciable change. 09/05/19 13:55 Patient states she is currently completely symptom-free. 09/05/19 16:29 Initial troponin as recorded. Second troponin as recorded. X-ray shows no obvious fluid overload. Patient is satting 98% on room air with a heart rate of 67. Patient states she has no symptoms at this time. Patient and son would like to go home. Patient has no weakness on repeat examination. I have called the primary care physician and discussed the case. He is also comfortable with the patient going home and following up in the office. Given the examination, repeat levels, and patient's current status I do believe this is a reasonable option. I have explained strict return precautions and the family and patient understand. - Vital Signs Vital signs: Temp Pulse Resp BP Pulse Ox 98.0 F 70 14 158/52 H 100 09/05/19 15:45 09/05/19 10:45 09/05/19 15:01 09/05/19 15:01 09/05/19 15:01 - Laboratory Result Diagrams: 09/05/19 12:14 09/05/19 12:14 Laboratory results interpreted by me: 09/05/19 09/05/19 09/05/19 12:14 12:14 12:14 RBC 3.37 L Hgb 10.9 L Hct 31.1 L RDW 14.5 H BUN 22 H Creatinine 3.06 H Est GFR ( Amer) 18 L Est GFR (MDRD) Non-Af 15 L NT-Pro-B Natriuret Pep 5490 H Discharge - Discharge Clinical Impression: Shortness of breath Condition: Good Disposition: HOME, SELF-CARE Additional Instructions: Come back immediately with any return of shortness of breath, new weakness or numbness, chest pain, fevers or vomiting, leg swelling, or any other acute problems. Please make sure that you follow-up with the primary care physician that we have expedited for you as discussed. Referrals: SHAINA BELTRE MD [Primary Care Provider] - Follow up as needed
[2019-09-05 12:34] LABS: ABSOLUTE BASOPHILS # (AUTO) 0.1 10^3/uL (0.0-0.2); ABSOLUTE EOSINOPHILS # (AUTO) 0.3 10^3/uL (0.0-0.6); ABSOLUTE LYMPHOCYTES (AUTO) 1.5 10^3/uL (0.5-4.7); ABSOLUTE MONOCYTES (AUTO) 0.6 10^3/uL (0.1-1.4); ABSOLUTE NEUT (AUTO) 3.9 10^3/uL (1.7-8.2); EOSINOPHILS % (AUTO) 4.1 % (0-6); HEMATOCRIT 31.1 % (36.0-47.0); HEMOGLOBIN 10.9 g/dL (12.0-15.5); INTERNATIONAL RATION (INR) 1.03; LYMPHOCYTES % (AUTO) 23.6 % (13-45); MEAN CORPUSCULAR HEMOGLOBIN 32.3 pg (27.0-33.4); MEAN CORPUSCULAR VOLUME 93 fl (80-97); MONOCYTES % (AUTO) 8.8 % (3-13); PLATELET COUNT 192 10^3/uL (150-450); PROTHROMBIN TIME 13.5 SEC (11.4-15.4); RED BLOOD COUNT 3.37 10^6/uL (3.72-5.28); RED CELL DISTRIBUTION WIDTH 14.5 % (11.5-14.0); SEGMENTED NEUTROPHILS % (AUTO) 62.5 % (42-78); TOTAL CELLS COUNTED % (AUTO) 100 %; WHITE BLOOD COUNT 6.3 10^3/uL (4.0-10.5)
[2019-09-05 12:35] LABS: PARTIAL THROMBOPLASTIN TIME 29.4 SEC (23.5-35.8)
[2019-09-05 12:50] LABS: ALBUMIN 4.1 g/dL (3.5-5.0); ALKALINE PHOSPHATASE 96 U/L (38-126); ANION GAP 11 (5-19); ASPARTATE AMINO TRANSFERASE 20 U/L (14-36); BILIRUBIN,DIRECT 0.3 mg/dL (0.0-0.4); BILIRUBIN,TOTAL 0.8 mg/dL (0.2-1.3); BLOOD UREA NITROGEN 22 mg/dL (7-20); CALCIUM 8.9 mg/dL (8.4-10.2); CARBON DIOXIDE 27 mmol/L (22-30); CHLORIDE 99 mmol/L (98-107); CREATINE KINASE 48 U/L (30-135); GLUCOSE 90 mg/dL (75-110); POTASSIUM 4.3 mmol/L (3.6-5.0); TOTAL PROTEIN 7.6 g/dL (6.3-8.2)
[2019-09-05 13:01] LABS: CREATINE KINASE MB < 0.22 ng/mL (<4.55); TROPONIN I < 0.012 ng/mL
[2019-09-05 16:56] VITALS: BP 150/48
--- NOTE | 2019-09-05 19:31 | EKG REPORT ---
SEVERITY:- NORMAL ECG - SINUS RHYTHM : Confirmed by: Tiffanie Plummer MD 05-Sep-2019 19:30:30
== END 2019-09-05 16:56 | disposition home or self-care (01) ==
LOC: ER 10:18
DX: R06.02 Shortness of breath (principal); R20.0 Anesthesia of skin; R05 Cough; R09.81 Nasal congestion; E78.00 Pure hypercholesterolemia, unspecified; E11.22 Type 2 diabetes mellitus with diabetic chronic kidney disease; I12.0 Hypertensive chronic kidney disease with stage 5 chronic kidney disease or end stage renal disease; N18.6 End stage renal disease; Z99.2 Dependence on renal dialysis; Z98.51 Tubal ligation status
CPT/HCPCS: 36415; 70450; 71045; 80053; 82550; 82553; 83880; 84484; 85025; 85610; 85730; 93005; 93010; 99285